=== PATIENT | female | born 1975 | race Caucasian/White ===

== ENCOUNTER → 2023-12-01 | Outpatient (CLI) | payer OTHER ==
--- NOTE | 2023-12-01 07:50 | CTL ---
EXAMINATION TYPE: CT Low Dose Lung DATE OF EXAM ORDERED: 12/01/2023 COMPARISON: None HISTORY: . Low Dose CT Lung Screening CT DLP: [address] CTDI: 1.8 mGy IV CONTRAST USED: None. SCREENING VISIT: First visit COMPARISON: None. TECHNIQUE: Low dose computed tomography scan was performed through the chest at 1 millimeter thick se ctions and reconstructed images in the coronal plane at [address] DIAGNOSTIC QUALITY: Satisfactory FINDINGS: LUNG NODULES: Not presentLeft lung: no nodules identified.Right lung: no nodules identified. LUNGS: COPD: Severity: None Fibrosis: Severity:None Lymph nodes: None Other findings: None RIGHT PLEURAL SPACE: Effusion: None Calcification: None Thickening: None Pneumothorax: None LEFT PLEURAL SPACE: Effusion: None Calcification: None Thickening: None Pneumothorax: None HEART: Heart Size: Mildly enlarged Coronary calcification: Mild Pericardial effusion: None OTHER FINDINGS: Upper abdomen: Hepatomegaly with underlying hepatic steatosis. Bony thorax: Degenerative changes Supraclavicular region: No significant abnormalityOther: No significant abnormalityI IMPRESSION: No pulmonary nodularity greater than [address]LLOW UP [address] CHEST RECOMMENDATION: Follow-up screening in one year CT LUNG RAD: LUNG RAD CATEGORY 1 negative
== END | disposition home or self-care (01) ==
LOC: RADCTMAIN 06:36
PROVIDERS: ATTEND Family Medicine
DX: Z12.2 Encounter for screening for malignant neoplasm of respiratory organs (principal); F17.210 Nicotine dependence, cigarettes, uncomplicated
CPT/HCPCS: 71271

== ENCOUNTER 2024-02-12 11:00 | Day surgery (SDC) | payer OTHER ==
[~2024-02-12 11:00] MED LIST: LACTATED RINGERS 1,000 ML BAG ONE
[2024-02-12] MEDS ORDERED: PROPOFOL 10 MG/ML 20 ML VIAL IV ONE (11:09)
--- NOTE | 2024-03-10 15:40 | US ---
EXAMINATION TYPE: US abdomen limited DATE OF EXAM: 02/12/2024 COMPARISON: NONE CLINICAL INDICATION: Ascites check, free air in abdomen Real-time sector scanning sonography is performed over the 4 quadrants. Fluid is identified within th e right upper and right lower quadrant. Some minimal fluid is in the left upper quadrant. IMPRESSION: 1. Small amount of free fluid within the abdomen.
--- NOTE | 2024-03-12 10:36 | XR ---
Patient Suzi Dan ID [id number] Order # EXAMINATION TYPE: XR chest 2V DATE OF EXAM: 02/08/2024 COMPARISON: No comparison available on downtime PACS. INDICATION: Abdominal distention, pain TECHNIQUE: Frontal and lateral views of the chest are obtained. FINDINGS: The heart size is upper limits of normal. The pulmonary vasculature is normal. The lungs are clear. IMPRESSION: 1. No acute pulmonary process.
--- NOTE | 2024-03-18 14:46 | PN ---
Date of service is 02/13/2024 PROGRESS NOTE LOCATION: [facility]. REASON FOR FOLLOWUP: Leukocytosis. INTERVAL HISTORY: The patient is afebrile. The patient is breathing comfortably. The patient denies having any chest pain, shortness of breath, or cough. No nausea, no vomiting. Abdominal pain has improved. No diarrhea. PHYSICAL EXAMINATION: VITAL SIGNS: Her blood pressure is 114/79, pulse of 107, temperature of 98.6, 97% on room air. GENERAL DESCRIPTION: This is a middle-aged female, up in the room, in no distress. RESPIRATORY SYSTEM: Unlabored breathing. Clear to auscultation anteriorly. HEART: S1 and S2. Regular rate. ABDOMEN: Soft. Mildly distended. No rebound or rigidity. LABORATORY DATA: White count is down to 15.97, creatinine 0.74. Ultrasound of abdomen shows small amount of fluid. DIAGNOSTIC IMPRESSION AND PLAN: The patient with leukocytosis source likely multifactorial, in this patient with the hospital with rectal prolapse, status post reduction colonoscopy and EGD. Ultrasound abdomen did not show significant amount of flow to paracentesis in view of white count improvement with Rocephin and Flagyl. Consider a 10-day course of oral Ceftin and Flagyl on discharge. This was discussed with the [employer] for admitting team. MMODL / IJN: [id number] / DOMI
--- NOTE | 2024-03-19 11:22 | PN ---
Date of service is 02/11/2024 PROGRESS NOTE LOCATION: 430. REASON FOR FOLLOWUP: Leukocytosis. INTERVAL HISTORY: The patient is afebrile. The patient denies having any headache or URI symptoms. No chest pain, shortness of breath, or cough. She is recovering from abdominal discomfort, currently drinking prep for colonoscopy. PHYSICAL EXAMINATION: VITAL SIGNS: Blood pressure 107/70 with a pulse of 107, temperature 98.1. GENERAL DESCRIPTION: This is a middle-aged female, up in the bed in no distress. RESPIRATORY SYSTEM: Unlabored breathing. Clear to auscultation anteriorly. HEART: S1 and S2. Regular rate and rhythm. ABDOMEN: Soft, mildly distended. No guarding or rigidity. LABORATORY DATA: Creatinine 0.7, white count reviewed DIAGNOSTIC IMPRESSION AND PLAN: The patient with leukocytosis, most likely abdominal pain. This patient presented to hospital with rectal prolapse, status post reduction. The patient is currently waiting for colonoscopy. She is covered with Rocephin and Flagyl. White count and cultures, we will monitor. Continue supportive care. MMODL / IJN: [id number] / MTDD
--- NOTE | 2024-03-19 11:25 | PCN ---
PROCEDURE NOTE PROCEDURE PERFORMED: EGD with colonoscopy. PREOPERATIVE DIAGNOSIS: Rectal prolapse and abdominal pain. POSTOPERATIVE DIAGNOSIS: Rectal prolapse and gastritis. SURGEON: Dr. Nicholas. ANESTHESIA: MAC. DESCRIPTION OF PROCEDURE: The patient was placed on the endoscopy table in the lateral position. She received IV sedation. The gastroscope was placed in the oropharynx, passed in the esophagus and the stomach. The scope was then placed through the pylorus. The first and second portion of duodenum appeared normal. Scope was then brought back to the antrum, this appeared mildly inflamed. Biopsies were performed. The scope was then retroflexed and the remainder of the stomach appeared normal. The GE junction was at 40 cm. Distal esophagus appeared normal. The proximal esophagus appeared normal. The scope was withdrawn from the patient. Next, digital rectal exam was performed. There was evidence of rectal prolapse. The anus was quite patulous. Flexible colonoscope was then placed in the patient's anus and passed throughout the entire colon. The ileocecal valve was visualized. The cecum, ascending, and transverse colon appeared normal. The descending and sigmoid colon appeared normal. Scope was brought back to the rectum and this appeared normal. Scope was withdrawn from the patient. SUMMARY OF FINDINGS: 1. Rectal prolapse. 2. Antral gastritis. MMODL / IJN: [id number] /
--- NOTE | 2024-03-19 11:25 | PN ---
PROGRESS NOTE DATE OF SERVICE: 02/13/2024 SUBJECTIVE: Mrs. Dan remains stable. She has had some rectal prolapse overnight. OBJECTIVE: VITAL SIGNS: Stable. ABDOMEN: Soft. Nontender. The patient underwent EGD and colonoscopy yesterday. She has had some mild antral gastritis and rectal prolapse. The patient is stable for discharge. She will follow up in the office next week. MMODL / IJN: [id number] /
--- NOTE | 2024-03-19 11:31 | CONS ---
Date of service is 02/10/2024 CONSULTATION REASON FOR CONSULTATION: Leukocytosis. HISTORY OF PRESENT ILLNESS: The patient is a 48-year-old female with a past medical history significant for hypertension, presenting to the hospital for evaluation of rectal pain and prolapse in this patient. Symptom apparently has been getting worse for the last 3 weeks. The patient denies having any diarrhea or constipation. She did have some discomfort to the rectum area because of the prolapse, describing it to be mostly dull, aching, mild to moderate intensity without any radiation. Denies any constipation or diarrhea. No nausea, vomiting, or any high-grade fever. The patient has been evaluated and noticed to have elevated white count of 21,000, that has prompted the infectious disease consultation. She was empirically started on Rocephin. REVIEW OF SYSTEMS: Positive points have been mentioned in HPI. Rest of the systems negative. PAST MEDICAL HISTORY: Hypertension. PAST SURGICAL HISTORY: . SOCIAL HISTORY: History of smoking and drinking. No drug use. FAMILY HISTORY: No pertinent findings were noticed. ALLERGIES: No known drug allergies. MEDICATIONS: Currently, the patient is on: 1. Multivitamin. 2. Folic acid. 3. Thiamine. 4. Rocephin 1 g daily. 5. She is on normal saline, Protonix, [place], and Zofran. PHYSICAL EXAMINATION: VITAL SIGNS: Stable. T-max is 98 F GENERAL DESCRIPTION: This is a middle-aged female, lying in bed, in no distress. No tachypnea. No accessory muscle of respiration use. HEENT: Shows pallor. No scleral icterus. Oral mucous membranes dry. NECK: Trachea central. No thyromegaly. LUNGS: Unlabored breathing. Clear to auscultation. No wheeze or crackle. HEART: S1, S2. Regular rate and rhythm. ABDOMEN: Soft. No tenderness. No guarding. No rigidity. EXTREMITIES: No edema in the feet. SKIN: No rash or mass palpable. NEUROLOGIC: The patient is awake, alert, and oriented x3. Mood and affect normal. LABORATORY DATA: White count of 20,000 initially, down to 16; hemoglobin 7.4. AST is 203, ALT is 48. She did have a CT of abdomen and pelvis with enlarged liver, fatty liver, moderate fluid in the pelvis, and diverticulitis. DIAGNOSTIC IMPRESSION/PLAN: 1. The patient with leukocytosis, which is likely of GI source in this patient, who presented to the hospital with rectal pain and prolapse that has been reduced. Also, she has some anemia, abnormal CT with free fluid in the pelvis, and we will need to cover for the enteric gram-negative both aerobes and anaerobes. 2. The patient to continue Rocephin. We will add Flagyl for anaerobic coverage. 3. The patient did have positive blood culture with staph epi, more likely skin contamination. Unfortunately, we cannot repeat the blood culture as no blood culture bottle is available in the hospital. 4. We will follow on clinical condition and culture to further adjust medication if needed. Thank you for this consultation. We will follow this patient along with you. MMODL / IJN: [id number] / DOMI
--- NOTE | 2024-03-19 11:55 | PN ---
PROGRESS NOTE DATE OF SERVICE: 02/12/2024 LOCATION: 450. REASON FOR FOLLOWUP: Leukocytosis. INTERVAL HISTORY: The patient is afebrile. The patient is breathing comfortably. The patient is status post EGD and colonoscopy with evidence of gastritis. No active source of bleeding. Denies any chest pain, shortness of breath, or cough. No abdominal pain. Feeling better. Wants to go home. PHYSICAL EXAMINATION: VITAL SIGNS: Blood pressure 137/77, pulse of 108, temperature 98.4. She is 95% on room air. GENERAL DESCRIPTION: This is a middle-aged female, up in the room, in no distress. RESPIRATORY SYSTEM: Unlabored breathing. Clear to auscultation anteriorly. HEART: S1, S2. Regular rate and rhythm. ABDOMEN: Soft, mildly distended. No guarding or rigidity. LABORATORY DATA: White count is up to 19,000. DIAGNOSTIC IMPRESSION AND PLAN: The patient with leukocytosis, multifactorial, concerning for possible abdominal source, presenting with abdominal pain and leukocytosis. Abdominal ultrasound has been ordered keeping in mind elevated white count. Continue Rocephin and Flagyl and we will watch. Follow up on the culture. Repeat CBC with a.m. labs. MMODL / IJN: [id number] /
== END 2024-02-12 12:30 ==
LOC: ORWHC2ENDO 11:00
PROVIDERS: ATTEND Surgery
DX: K31.9 Disease of stomach and duodenum, unspecified
CPT/HCPCS: 43239; 45378; 76705; 87040; 88305

== ENCOUNTER → 2024-02-16 | Outpatient (CLI) | payer OTHER ==
--- NOTE | 2024-02-16 17:27 | US ---
EXAMINATION TYPE: US venous doppler duplex LE RT DATE OF EXAM: 02/16/2024 5:16 PM COMPARISON: NONE CLINICAL INDICATION: Female, 48 years old with history of R22.41 SWELLING OF RIGHT LOWER LIMB; Patien t states right leg swelling. No hx of DVT. Patient not on thinners. SIDE PERFORMED: Right TECHNIQUE: The lower extremity deep venous system is examined utilizing real time linear array sonog mayra with graded compression, doppler sonography and color-flow sonography. VESSELS IMAGED: Common Femoral Vein Deep Femoral Vein Greater Saphenous Vein * Femoral Vein Popliteal Vein Small Saphenous Vein * Proximal Calf Veins (* superficial vessels) Right Leg: appears negative for DVT IMPRESSION: Grayscale, color doppler, spectral doppler imaging performed of the deep veins of the lo wer extremities. There is normal flow, compressibility, vascular waveforms.
== END | disposition home or self-care (01) ==
LOC: RADUSWWP 16:52
PROVIDERS: ATTEND Family Medicine
DX: R22.41 Localized swelling, mass and lump, right lower limb (principal)

== ENCOUNTER 2024-02-18 14:12 | Emergency (ER) | payer OTHER ==
--- NOTE | 2024-02-18 16:03 | ED ---
Recheck HPI - General Source: patient, RN notes reviewed Mode of arrival: wheelchair Limitations: no limitations <Cboy Rosales - Last Filed: 02/18/24 16:02> <Louis Mata - Last Filed: 02/18/24 21:34> - General Chief Complaint: Recheck/Abnormal Lab/Rx Stated Complaint: abn labs Time Seen by Provider: 02/18/24 16:02 - History of Present Illness Initial Comments: Quick note: 48-year-old female presented to the ER with a chief complaint of abnormal labs. Patient slipped with PCP found to have leukocytosis. Patient reports recent peripheral edema and abdominal distention. Patient was scheduled for paracentesis. Denies any fevers or chills. Patient was started on a diuretic but has had low urinary output. Patient recently released from this hospital after a 5 days admission for similar complaint. (Coby Rosales) - Related Data Home Medications Medication Instructions Recorded Confirmed Losartan [Cozaar] 25 mg PO DAILY 02/18/24 02/18/24 Triamcinolone 0.5% Cream [Kenalog 1 applic TOPICAL BID 02/18/24 02/18/24 0.5% Cream] cefUROXime axetiL [Ceftin] 500 mg PO BID 02/18/24 02/18/24 metroNIDAZOLE [Flagyl] 500 mg PO TID 02/18/24 02/18/24 Allergies Allergy/AdvReac Type Severity Reaction Status Date / Time lavender (Lavandula Allergy Itching Verified 02/18/24 19:27 angustifolia) Review of Systems ROS Other: All systems not noted in ROS Statement are negative. <Coby Rosales - Last Filed: 02/18/24 16:02> ROS Other: All systems not noted in ROS Statement are negative. <Louis Mata - Last Filed: 02/18/24 21:34> ROS Statement: Those systems with pertinent positive or pertinent negative responses have been documented in the HPI. Past Medical History Past Medical History: Hypertension Additional Past Medical History / Comment(s): prolapsed rectum History of Any Multi-Drug Resistant Organisms: None Reported Past Surgical History: Section Past Psychological History: No Psychological Hx Reported Smoking Status: Current every day smoker Past Alcohol Use History: Heavy Past Drug Use History: Marijuana <Coby Rosales - Last Filed: 02/18/24 16:02> General Exam Limitations: no limitations <Coby Rosales - Last Filed: 02/18/24 16:02> General appearance: alert, in no apparent distress Head exam: Present: atraumatic, normocephalic Eye exam: Present: normal appearance, PERRL ENT exam: Present: normal exam Neck exam: Present: normal inspection. Absent: tenderness, meningismus Respiratory exam: Present: normal lung sounds bilaterally, decreased breath sounds. Absent: respiratory distress, wheezes Cardiovascular Exam: Present: regular rate, normal rhythm GI/Abdominal exam: Present: distended, other (Positive fluid wave). Absent: tenderness Extremities exam: Present: pedal edema Neurological exam: Present: alert, oriented X3 Psychiatric exam: Present: normal affect, normal mood Skin exam: Present: pallor <Louis Mata - Last Filed: 02/18/24 21:34> - General Exam Comments Initial Comments: Visual Physical Exam Vital signs reviewed General: Well-appearing, nontoxic, no acute distress. Head: Normocephalic, atraumatic Eyes: PERRLA, EOMI ENT: Airway patent Chest: Nonlabored breathing Skin: No visual rash, normal skin tone, bilateral lower extremity edema. D istended abdomen. Neuro: Alert and oriented 3 Musculoskeletal: No gross abnormalities (Coby Rosales) Course <Louis Mata - Last Filed: 02/18/24 21:34> Vital Signs 02/18/24 02/18/24 14:28 18:25 Temperature 98.0 F 97.9 F Pulse Rate 117 H 102 H Respiratory 18 16 Rate Blood Pressure 81/56 99/48 O2 Sat by Pulse 100 96 Oximetry - Reevaluation(s) Reevaluation #1: 02/18/24 17:35 Reevaluated, resting comfortably, no pain complaints (Louis Mata) Medical Decision Making <Coby Rosales - Last Filed: 02/18/24 16:02> - Lab Data Result diagrams: 02/18/24 18:23 02/18/24 19:50 <Louis Mata - Last Filed: 02/18/24 21:34> - Medical Decision Making I performed the quick note portion of this chart. Electronically signed by Coby Rosales PA-C (Coby Rosales) Was pt. sent in by a medical professional or institution (KERVIN Wade, [employer]ER, urgent care, hospital, or [facility]...) When possible be specific @ -No Did you speak to anyone other than the patient for history (EMS, parent, family, police, friend...)? What history was obtained from this source @ -No Did you review nursing and triage notes (agree or disagree)? Why? @ -I reviewed and agree with nursing and triage notes Were old charts reviewed (outside hosp., previous admission, EMS record, old EKG, old radiological studies, urgent care reports/EKG's, [facility] records)? Report findings @ -No old charts were reviewed Differential Abdominal Pain Women: Appendicitis, Cholecystitis, diverticulosis, ischemic bowel, pancreatitis, hepatitis, UTI, gastroenteritis, AAA, incarcerated hernia, bowel obstruction, constipation, inflammatory bowel, hepatitis, peptic ulcer disease, splenic infarction, perforated viscus, vulvitis, ovarian torsion, PID, kidney stone, placenta abruption, this is not meant to be an all-inclusive list EKG interpreted by me (3pts min.). @ -Sinus rhythm rate of 96, AR interval 99, QRS duration 86, QTc [address] segment elevation. X-rays interpreted by me (1pt min.). @Chest x-ray has concern for infiltrate CT interpreted by me (1pt min.). @ -CT pelvis showing ascites U/S interpreted by me (1pt. min.). @ -None done What testing was considered but not performed or refused? (CT, X-rays, U/S, labs)? Why? @ -None What meds were considered but not given or refused? Why? @ -None Did you discuss the management of the patient with other professionals (p rofessionals i.e. KERVIN Wade, [employer]ER, lab, RT, psych nurse, director of social services, real estate lawyer, teacher, helicopter officer, case finishing machine adjuster)? Give summary @Case discussed with Dr. Holt who will admit Was smoking cessation discussed for >3mins.? @ -No Was critical care preformed (if so, how long)? @ -No Were there social determinants of health that impacted care today? How? (Homelessness, low income, unemployed, alcoholism, drug addiction, transportation, low edu. Level, literacy, decrease access to med. care, [facility], r ehab)? @ -No Was there de-escalation of care discussed even if they declined (Discuss DNR or withdrawal of care, Hospice)? DNR status @ -No What co-morbidities impacted this encounter? (DM, HTN, Smoking, COPD, CAD, Cancer, CVA, ARF, Chemo, Hep., AIDS, mental health diagnosis, sleep apnea, morbid obesity)? @ - Was patient admitted / discharged? Hospital course, mention meds given and route, prescriptions, significant lab abnormalities, going to OR and other pertinent info. @ -Patient admitted with leukocytosis, questionable pneumonia and ascites. Admitted to internal medicine with interventional radiology as well as general surgery on consult for rectal prolapse which she states she was awaiting surgical evaluation for Undiagnosed new problem with uncertain prognosis? @ -No Drug Therapy requiring intensive monitoring for toxicity (Heparin, Nitro, Insulin, Cardizem)? @ -No Were any procedures done? @ -No Diagnosis/symptom? @yes, pneumonia, leukocytosis Acute, or Chronic, or Acute on Chronic? @ -Acute on chronic Uncomplicated (without systemic symptoms) or Complicated (systemic symptoms)? @ -Default Side effects of treatment? @ -No Exacerbation, Progression, or Severe Exacerbation? @ -No Poses a threat to life or bodily function? How? (Chest pain, USA, VT, pneumonia, PE, COPD, DKA, ARF, appy, cholecystitis, CVA, Diverticulitis, Homicidal, Suicidal, threat to staff... and all critical care pts) @ -[yes, sepsis (Louis Mata) - Lab Data Lab Results 02/18/24 02/18/24 02/18/24 Range/Units 18:23 18:23 18:23 WBC 20.5 H (3.8-10.6) k/uL RBC 2.17 L (3.80-5.40) m/uL Hgb 8.6 L (11.4-16.0) gm/dL Hct 28.5 L (34.0-46.0) % MCV 131.0 H (80.0-100.0) fL MCH 39.7 H (25.0-35.0) pg MCHC 30.3 L (31.0-37.0) g/dL RDW 15.8 H (11.5-15.5) % Plt Count 751 H (150-450) k/uL MPV 8.7 Neutrophils % 88 % Lymphocytes % 8 % Monocytes % 3 % Eosinophils % 1 % Basophils % 0 % Neutrophils # 18.0 H (1.3-7.7) k/uL Lymphocytes # 1.7 (1.0-4.8) k/uL Monocytes # 0.5 (0-1.0) k/uL Eosinophils # 0.1 (0-0.7) k/uL Basophils # 0.0 (0-0.2) k/uL Manual Slide Review Performed Large Platelets Present Polychromasia Present Hypochromasia Moderate Macrocytosis Marked A Target Cells Present Stomatocytes Present PT 14.1 H (10.0-12.5) sec INR 1.3 H (<1.2) APTT 26.7 (22.0-30.0) sec Sodium (137-145) mmol/L Potassium (3.5-5.1) mmol/L Chloride (98-107) mmol/L Carbon Dioxide (22-30) mmol/L Anion Gap mmol/L BUN (7-17) mg/dL Creatinine (0.52-1.04) mg/dL Est GFR (CKD-EPI)AfAm (>60 ml/min/1.73 sqM) Est GFR (CKD-EPI)NonAf (>60 ml/min/1.73 sqM) Glucose (74-99) mg/dL Plasma Lactic Acid Himanshu 1.0 (0.7-2.0) mmol/L Calcium (8.4-10.2) mg/dL Total Bilirubin (0.2-1.3) mg/dL AST (14-36) U/L ALT (4-34) U/L Alkaline Phosphatase (38-126) U/L NT-Pro-B Natriuret Pep pg/mL Total Protein (6.3-8.2) g/dL Albumin (3.5-5.0) g/dL 02/18/24 Range/Units 19:50 WBC (3.8-10.6) k/uL RBC (3.80-5.40) m/uL Hgb (11.4-16.0) gm/dL Hct (34.0-46.0) % MCV (80.0-100.0) fL MCH (25.0-35.0) pg MCHC (31.0-37.0) g/dL RDW (11.5-15.5) % Plt Count (150-450) k/uL MPV Neutrophils % % Lymphocytes % % Monocytes % % Eosinophils % % Basophils % % Neutrophils # (1.3-7.7) k/uL Lymphocytes # (1.0-4.8) k/uL Monocytes # (0-1.0) k/uL Eosinophils # (0-0.7) k/uL Basophils # (0-0.2) k/uL Manual Slide Review Large Platelets Polychromasia Hypochromasia Macrocytosis Target Cells Stomatocytes PT (10.0-12.5) sec INR (<1.2) APTT (22.0-30.0) sec Sodium 139 (137-145) mmol/L Potassium 2.8 L (3.5-5.1) mmol/L Chloride 114 H (98-107) mmol/L Carbon Dioxide 17 L (22-30) mmol/L Anion Gap 8 mmol/L BUN 9 (7-17) mg/dL Creatinine 0.91 (0.52-1.04) mg/dL Est GFR (CKD-EPI)AfAm 85 (>60 ml/min/1.73 sqM) Est GFR (CKD-EPI)NonAf 74 (>60 ml/min/1.73 sqM) Glucose 99 (74-99) mg/dL Plasma Lactic Acid Himanshu (0.7-2.0) mmol/L Calcium 8.6 (8.4-10.2) mg/dL Total Bilirubin 2.2 H (0.2-1.3) mg/dL AST 111 H (14-36) U/L ALT 28 (4-34) U/L Alkaline Phosphatase 570 H (38-126) U/L NT-Pro-B Natriuret Pep 929 pg/mL Total Protein 5.3 L (6.3-8.2) g/dL Albumin 2.3 L (3.5-5.0) g/dL Disposition <Coby Rosales - Last Filed: 02/18/24 16:02> Is patient prescribed a controlled substance at d/c from ED?: No Time of Disposition: 21:34 <Louis Mata - Last Filed: 02/18/24 21:34> Clinical Impression: Ascites, Leukocytosis Disposition: ADMITTED IP TO THIS [facility] Condition: Stable Referrals: Tegan Low MD [Primary Care Provider] - 1-2 days
--- NOTE | 2024-02-18 17:50 | XR ---
EXAMINATION TYPE: XR chest 2V DATE OF EXAM: 02/18/2024 COMPARISON: None INDICATION: Peripheral edema, elevated white count TECHNIQUE: Single frontal view of the chest is obtained. FINDINGS: The heart size is normal. The pulmonary vasculature is normal. Mild atelectatic type changes are at the right lung base. Consider pneumonia. Some minimal subsegment al atelectasis is likely present in the left lung base. IMPRESSION: 1. Right lower lobe infiltrate likely atelectasis. Pneumonia could be considered. 2. Minimal subsegmental atelectasis may be at the left base.
--- NOTE | 2024-02-18 17:53 | CT ---
EXAMINATION TYPE: CT abdomen pelvis wo con DATE OF EXAM: 02/18/2024 COMPARISON: None INDICATION: abdominal distention and abnormal labs sent by PCP DLP: 479.8 mGycm, Automated exposure control for dose reduction was used. CONTRAST: 0 mL of Isovue 300. Study performed without Oral Contrast TECHNIQUE: Axial images were obtained from above the diaphragm to the pubic rami in the axial plane a t 5 mm thick sections. Reconstructed images are reviewed on the computer in the coronal plane. FINDINGS: Limited CT sections are obtained the lung bases. Some minimal infiltrates in the periphery of the li ngula and left lung base. Mild bibasilar atelectasis is likely present. Small left pleural effusion i s present.. CT ABDOMEN: Some mild fluid is adjacent to the liver and spleen. Fluid continues through the paracoli c gutter. Some moderate fluid is within the pelvis. Liver: Hepatomegaly is present. Spleen: Normal Pancreas: Normal Adrenal glands: The adrenal glands are normal. Gallbladder: Normal Kidneys: No masses are evident. No hydronephrosis is present. No cysts are present. No renal stone s are evident. Aorta: Normal Inferior vena cava: Normal. CT PELVIS: Loops of bowel within the abdomen and pelvis are normal. Few scattered diverticuli within the sigmoid colon This study is without oral contrast limiting bowel evaluation. Appendix: Normal as visualized. Urinary bladder: Normal. Genitourinary structures: Uterus appears unremarkable. Adnexa are normal. Osseous structures: No suspicious lytic or sclerotic lesions. IMPRESSION: 1. Moderate free fluid through the abdomen and pelvis. 2. Hepatomegaly. 3. Mild diverticulosis without acute diverticulitis.
[2024-02-18 19:03] LABS: Basophils % (A) 0 %; Eosinophils # (A) 0.1 k/uL (0-0.7); Eosinophils % (A) 1 %; HCT 28.5 % (34.0-46.0); HGB 8.6 gm/dL (11.4-16.0); Hypochromasia Moderate; Lymphocytes # (A) 1.7 k/uL (1.0-4.8); Lymphocytes % (A) 8 %; MCH 39.7 pg (25.0-35.0); MCHC 30.3 g/dL (31.0-37.0); Macrocytosis Marked; Mean Platelet Volume 8.7; Monocytes # (A) 0.5 k/uL (0-1.0); Monocytes % (A) 3 %; Neutrophils % (A) 88 %; Platelet Count 751 k/uL (150-450); RBC 2.17 m/uL (3.80-5.40); RDW 15.8 % (11.5-15.5); WBC 20.5 k/uL (3.8-10.6)
[2024-02-18 19:26] LABS: Large Platelets Present; Polychromasia Present; Stomatocytes Present; Target Cells Present
[2024-02-18 19:38] LABS: INR 1.3 (<1.2); Partial Thromboplastin Time 26.7 sec (22.0-30.0); Prothrombin Time 14.1 sec (10.0-12.5)
[2024-02-18 20:14] LABS: ALT 28 U/L (4-34); AST 111 U/L (14-36); African American GFR (CKD) 85 (>60 ml/min/1.73 sqM); Albumin 2.3 g/dL (3.5-5.0); Alkaline Phosphatase 570 U/L (38-126); Anion Gap 8 mmol/L; Blood Urea Nitrogen 9 mg/dL (7-17); Calcium 8.6 mg/dL (8.4-10.2); Carbon Dioxide 17 mmol/L (22-30); Chloride 114 mmol/L (98-107); Glucose 99 mg/dL (74-99); Non-African American GFR(CKD) 74 (>60 ml/min/1.73 sqM); Potassium 2.8 mmol/L (3.5-5.1); Sodium 139 mmol/L (137-145); Total Bilirubin 2.2 mg/dL (0.2-1.3); Total Protein 5.3 g/dL (6.3-8.2)
[2024-02-18 20:22] LABS: NT-Pro-B-Type Natriuretic Pept 929 pg/mL
[2024-02-18] MEDS ORDERED: NALOXONE 0.4 MG/ML 1 ML VIAL IV PRN (21:30)
[2024-02-18] MEDS ORDERED: HYDROmorphone 0.5 MG/0.5 ML SYRINGE IVP PRN (21:30)
[2024-02-18 21:41] LABS: Appearance,Urine Clear (Clear); Bilirubin,Urine 1+ (Negative); Blood,Urine Negative (Negative); Color,Urine Dark Brown; Glucose,Urine (UA) Negative (Negative); Hyaline Casts,Urine 56 /lpf (0-2); Ketones,Urine Trace (Negative); Leukocyte Esterase,Urine Trace (Negative); Nitrite,Urine Negative (Negative); Protein,Urine 1+ (Negative); RBC,Urine 1 /hpf (0-5); Specific Gravity,Urine 1.031 (1.001-1.035); Squamous Epithelial Cell,Urine 1 /hpf (0-4); Urobilinogen,Urine <2.0 mg/dL (<2.0); WBC,Urine 1 /hpf (0-5)
[2024-02-19] MEDS: HYDROmorphone 0.5 MG/0.5 ML SYRINGE IVP STA (04:21)
[2024-02-19] MEDS: POTASSIUM CHLORIDE 10 MEQ in WATER FOR INJECTION 1 100ML.BAG IVPB SCH (04:22)
[2024-02-19 05:01] VITALS: BP 91/63; PULSE 97; RESP 18; TEMP 98.3
--- NOTE | 2024-03-01 17:21 | CT ---
Patient Suzi Dan ID [id number] Order # EXAMINATION TYPE: CT abdomen pelvis w con DATE OF EXAM: 02/08/2024 COMPARISON: No comparison available on downtime PACS. INDICATION: Abdominal pain and distention x3 weeks DLP: 677.3 mGycm, Automated exposure control for dose reduction was used. CONTRAST: 100 mL of Isovue 300. Study performed without Oral Contrast TECHNIQUE: Axial images were obtained from above the diaphragm to the pubic rami in the axial plane a t 5 mm thick sections. Reconstructed images are reviewed on the computer in the coronal plane. FINDINGS: Limited CT sections are obtained the lung bases. The lung bases are clear. CT ABDOMEN: Liver: Liver is heterogenous and enlarged, measuring 24.5 cm in craniocaudal dimension. Discrete mass es are not evident. More homogenous appearance with moderate fatty infiltration on the delayed images . An infiltrative process however should be considered. Additional workup is recommended. Spleen: Normal Pancreas: Normal Adrenal glands: The adrenal glands are normal. Gallbladder: Decompressed but otherwise unremarkable. Kidneys: No masses are evident. No hydronephrosis is present. No cysts are present. Delayed images were obtained through the kidneys, which remain unremarkable. Aorta: Normal Inferior vena cava: Normal. CT PELVIS: Moderate free fluid is within the pelvis. Loops of bowel within the abdomen and pelvis are normal. There are few scattered diverticuli within the sigmoid colon without evidence of acute diverticulitis. This study is without oral contrast parks iting bowel evaluation. Appendix: Normal as visualized. Urinary bladder: Decompressed with limited evaluation. Genitourinary structures: Uterus appears normal. Adnexa are unremarkable Osseous structures: No suspicious lytic or sclerotic lesions. Left femoral medullary suzy is present. IMPRESSION: 1. Markedly enlarged heterogenous appearing liver. Findings could be related to fatty liver. Infiltr ative process should be considered. 2. Moderate free fluid within the pelvis of uncertain etiology. 3. Diverticulosis without acute diverticulitis.
== END 2024-02-19 05:40 | disposition other institution (70) ==
LOC: EC 14:12 → 5NMEDONC 21:30 → UNDOADMIN 21:30 → UNDODISIN 02-19 05:58
CPT/HCPCS: 36415; 71046; 74176; 80053; 81001; 83605; 83880; 85025; 85610; 85730; 87040; 93005; 96365; 99285

== ENCOUNTER 2024-03-03 13:26 | Inpatient (IN) | payer OTHER ==
--- NOTE | 2024-03-03 15:34 | ED ---
General Adult HPI - General Chief complaint: Shortness of Breath Stated complaint: TOMMIE Time Seen by Provider: 03/03/24 15:00 Source: patient, RN notes reviewed, old records reviewed Mode of arrival: ambulatory Limitations: no limitations - History of Present Illness Initial comments: This is a 48-year-old female who has a past medical history significant for liver failure. Patient has significant ascites and has had it drained once before. Patient states her abdomen is getting so large that it is making it difficult to get full breaths and she feels short of breath. Patient Nuys any chest pain or palpitations. Patient denies any fever chills or cough. Patient does states she has a little bit of back pain but not bad. Patient denies any abdominal pain patient has nausea vomiting diarrhea. Patient states her abdomen is very distended and she comes in so that she can get her abdomen drained - Related Data Home Medications Medication Instructions Recorded Confirmed Triamcinolone 0.5% Cream [Kenalog 1 applic TOPICAL BID 02/18/24 03/03/24 0.5% Cream] Furosemide [Lasix] 20 mg PO DAILY 03/03/24 03/03/24 Midodrine [ProAmatine] 10 mg PO TID 03/03/24 03/03/24 Sodium Bicarbonate Tab 650 mg PO QID 03/03/24 03/03/24 Spironolactone [Aldactone] 25 mg PO BID 03/03/24 03/03/24 Allergies Allergy/AdvReac Type Severity Reaction Status Date / Time lavender (Lavandula Allergy Itching Verified 03/03/24 16:21 angustifolia) Review of Systems ROS Statement: Those systems with pertinent positive or pertinent negative responses have been documented in the HPI. ROS Other: All systems not noted in ROS Statement are negative. Past Medical History Past Medical History: Hypertension Additional Past Medical History / Comment(s): prolapsed rectum History of Any Multi-Drug Resistant Organisms: None Reported Past Surgical History: Section Past Psychological History: No Psychological Hx Reported Smoking Status: Current every day smoker Past Alcohol Use History: Heavy Past Drug Use History: Marijuana General Exam - General Exam Comments Initial Comments: GENERAL: Patient is well-developed and well-nourished. Patient is nontoxic and well- hydrated and is in mild distress. ENT: Neck is soft and supple. No significant lymphadenopathy is noted. Oropharynx is clear. Moist mucous membranes. Neck has full range of motion without eliciting any pain. EYES: The sclera were anicteric and conjunctiva were pink and moist. Extraocular movements were intact and pupils were equal round and reactive to light. Eyelids were unremarkable. PULMONARY: Unlabored respirations. Good breath sounds bilaterally. No audible rales rhonchi or wheezing was noted. CARDIOVASCULAR: There is a regular rate and rhythm without any murmurs gallops or rubs. Femoral pulses are equal bilaterally ABDOMEN: Abdomen is grossly distended and taut. SKIN: Skin is clear with no lesions or rashes and otherwise unremarkable. NEUROLOGIC: Patient is alert and oriented x3. Cranial nerves II through XII are grossly int act. Motor and sensory are also intact. Normal speech, volume and content. Symmetrical smile. MUSCULOSKELETAL: Normal extremities with adequate strength and full range of motion. No lower extremity swelling or edema. No calf tenderness. LYMPHATICS: No significant lymphadenopathy is noted PSYCHIATRIC: Normal psychiatric evaluation. Limitations: no limitations Course Vital Signs 03/03/24 03/03/24 03/03/24 13:32 16:57 17:19 Temperature 98.0 F Pulse Rate 116 H 106 H 84 Respiratory 20 20 20 Rate Blood Pressure 92/66 87/59 104/71 O2 Sat by Pulse 94 L 96 96 Oximetry Medical Decision Making - Medical Decision Making EKG is interpreted by myself. EKG shows a sinus tachycardia at 112 bpm parables 99 QRS of 73 QT interval 321 QTc is 387. Patient's EKG shows no ST segment ovation or depression. Was pt. sent in by a medical professional or institution (, PA, SETTER HELPER, urgent care, hospital, or [facility]...) When possible be specific @ -No Did you speak to anyone other than the patient for history (EMS, parent, family, police, friend...)? What history was obtained from this source @ -No Did you review nursing and triage notes (agree or disagree)? Why? @ -I reviewed and agree with nursing and triage notes Were old charts reviewed (outside hosp., previous admission, EMS record, old EKG, old radiological studies, urgent care reports/EKG's, [facility] records)? Report findings @ -No old charts were reviewed Differential Diagnosis? @ -Differential Dyspnea: Coronary syndrome, arrhythmia, tamponade, asthma, COPD, pulmonary embolism, pneumonia, pneumothorax, pulmonary effusion, anaphylaxis, diabetic ketoacidosis, flailed chest, pulmonary contusion, diaphragmatic rupture, anemia, neuromuscular, this is not meant to be an all-inclusive list. EKG interpreted by me (3pts min.). @ -As above X-rays interpreted by me (1pt min.). @ -Chest x-ray shows some minimal pulmonary edema CT interpreted by me (1pt min.). @ -None done U/S interpreted by me (1pt. min.). @ -None done What testing was considered but not performed or refused? (CT, X-rays, U/S, labs)? Why? @ -None What meds were considered but not given or refused? Why? @ -None Did you discuss the management of the patient with other professionals (professionals i.e. , PA, SETTER HELPER, lab, RT, psych nurse, perinatal social worker, corporate officer, teacher, nuclear officer, continuous pillowcase cutter)? Give summary @ -I spoke with I spoke with Dr. Galvan and he agreed to admit the patient Was smoking cessation discussed for >3mins.? @ -No Was critical care preformed (if so, how long)? @ -No Were there social determinants of health that impacted care today? How? (Homelessness, low income, unemployed, alcoholism, drug addiction, transportation, low edu. Level, literacy, decrease access to med. care, alf, rehab)? @ -No Was there de-escalation of care discussed even if they declined (Discuss DNR or withdrawal of care, Hospice)? DNR status @ -No What co-morbidities impacted this encounter? (DM, HTN, Smoking, COPD, CAD, Cancer, CVA, ARF, Chemo, Hep., AIDS, mental health diagnosis, sleep apnea, morbid obesity)? @ -None Was patient admitted / discharged? Hospital course, mention meds given and route, prescriptions, significant lab abnormalities, going to OR and other pertinent info. @ -Patient has significant ascites which is limiting the patient's breathing. Patient will be under Dr. Galvan. Undiagnosed new problem with uncertain prognosis? @ -No Drug Therapy requiring intensive monitoring for toxicity (Heparin, Nitro, Insulin, Cardizem)? @ -No Were any procedures done? @ -No Diagnosis/symptom? @ -Ascites Acute, or Chronic, or Acute on Chronic? @ -Acute Uncomplicated (without systemic symptoms) or Complicated (systemic symptoms)? @ -Complicated Side effects of treatment? @ -No Exacerbation, Progression, or Severe Exacerbation? @ -No Poses a threat to life or bodily function? How? (Chest pain, [place], [place], pneumonia, PE, COPD, DKA, ARF, appy, cholecystitis, CVA, Diverticulitis, Homicidal, Suicidal, threat to staff... and all critical care pts) @ -No - Lab Data Result diagrams: 03/03/24 15:45 03/03/24 15:45 Lab Results 03/03/24 03/03/24 03/03/24 Range/Units 15:45 15:45 15:45 WBC 20.7 H (3.8-10.6) k/uL RBC 2.70 L (3.80-5.40) m/uL Hgb 9.9 L (11.4-16.0) gm/dL Hct 33.6 L (34.0-46.0) % MCV 124.4 H D (80.0-100.0) fL MCH 36.5 H (25.0-35.0) pg MCHC 29.4 L (31.0-37.0) g/dL RDW 13.7 (11.5-15.5) % Plt Count 410 (150-450) k/uL MPV 8.2 Neutrophils % 84 % Lymphocytes % 10 % Monocytes % 4 % Eosinophils % 2 % Basophils % 0 % Neutrophils # 17.3 H (1.3-7.7) k/uL Lymphocytes # 2.1 (1.0-4.8) k/uL Monocytes # 0.7 (0-1.0) k/uL Eosinophils # 0.3 (0-0.7) k/uL Basophils # 0.1 (0-0.2) k/uL Manual Slide Review Performed Hypochromasia Marked Macrocytosis Marked A PT 13.7 H (10.0-12.5) sec INR 1.3 H (<1.2) APTT 29.1 (22.0-30.0) sec Sodium 136 L (137-145) mmol/L Potassium 4.4 (3.5-5.1) mmol/L Chloride 104 (98-107) mmol/L Carbon Dioxide 27 (22-30) mmol/L Anion Gap 5 mmol/L BUN 14 (7-17) mg/dL Creatinine 1.06 H (0.52-1.04) mg/dL Est GFR (CKD-EPI)AfAm 71 (>60 ml/min/1.73 sqM) Est GFR (CKD-EPI)NonAf 62 (>60 ml/min/1.73 sqM) Glucose 101 H (74-99) mg/dL Plasma Lactic Acid Himanshu (0.7-2.0) mmol/L Calcium 8.5 (8.4-10.2) mg/dL Total Bilirubin 1.8 H (0.2-1.3) mg/dL AST 138 H (14-36) U/L ALT 18 (4-34) U/L Alkaline Phosphatase 881 H (38-126) U/L Troponin I (0.000-0.034) ng/mL NT-Pro-B Natriuret Pep pg/mL Total Protein 6.1 L (6.3-8.2) g/dL Albumin 2.6 L (3.5-5.0) g/dL 03/03/24 03/03/24 03/03/24 Range/Units 15:45 15:45 15:45 WBC (3.8-10.6) k/uL RBC (3.80-5.40) m/uL Hgb (11.4-16.0) gm/dL Hct (34.0-46.0) % MCV (80.0-100.0) fL MCH (25.0-35.0) pg MCHC (31.0-37.0) g/dL RDW (11.5-15.5) % Plt Count (150-450) k/uL MPV Neutrophils % % Lymphocytes % % Monocytes % % Eosinophils % % Basophils % % Neutrophils # (1.3-7.7) k/uL Lymphocytes # (1.0-4.8) k/uL Monocytes # (0-1.0) k/uL Eosinophils # (0-0.7) k/uL Basophils # (0-0.2) k/uL Manual Slide Review Hypochromasia Macrocytosis PT (10.0-12.5) sec INR (<1.2) APTT (22.0-30.0) sec Sodium (137-145) mmol/L Potassium (3.5-5.1) mmol/L Chloride (98-107) mmol/L Carbon Dioxide (22-30) mmol/L Anion Gap mmol/L BUN (7-17) mg/dL Creatinine (0.52-1.04) mg/dL Est GFR (CKD-EPI)AfAm (>60 ml/min/1.73 sqM) Est GFR (CKD-EPI)NonAf (>60 ml/min/1.73 sqM) Glucose (74-99) mg/dL Plasma Lactic Acid Himanshu 1.2 (0.7-2.0) mmol/L Calcium (8.4-10.2) mg/dL Total Bilirubin (0.2-1.3) mg/dL AST (14-36) U/L ALT (4-34) U/L Alkaline Phosphatase (38-126) U/L Troponin I <0.012 (0.000-0.034) ng/mL NT-Pro-B Natriuret Pep 1020 pg/mL Total Protein (6.3-8.2) g/dL Albumin (3.5-5.0) g/dL Disposition Clinical Impression: Ascites Disposition: ADMITTED IP TO THIS HOSP Referrals: Tegan Low MD [Primary Care Provider] - 1-2 days Time of Disposition: 17:56
--- NOTE | 2024-03-03 15:39 | XR ---
EXAMINATION TYPE: XR chest 2V DATE OF EXAM: 03/03/2024 COMPARISON: 02/18/2024 HISTORY: 48 year-old female shortness of breath, difficulty breathing TECHNIQUE: AP and lateral views FINDINGS: Heart borderline in size. Diffuse interstitial densities. There are trace pleural effusions and some patchy right basilar opacity. Old healed fracture deformity distal left clavicular shaft. IMPRESSION: 1. Borderline heart size with interstitial densities and trace pleural effusions. Correlate for CHF w ith pulmonary vascular congestion. 2. Some patchy right basilar atelectasis/infiltrate versus early patchy pulmonary edema.
[2024-03-03 15:58] LABS: Basophils # (A) 0.1 k/uL (0-0.2); Basophils % (A) 0 %; Eosinophils # (A) 0.3 k/uL (0-0.7); Eosinophils % (A) 2 %; HCT 33.6 % (34.0-46.0); HGB 9.9 gm/dL (11.4-16.0); Hypochromasia Marked; Lymphocytes # (A) 2.1 k/uL (1.0-4.8); Lymphocytes % (A) 10 %; MCH 36.5 pg (25.0-35.0); MCHC 29.4 g/dL (31.0-37.0); Macrocytosis Marked; Mean Platelet Volume 8.2; Monocytes # (A) 0.7 k/uL (0-1.0); Monocytes % (A) 4 %; Neutrophils # (A) 17.3 k/uL (1.3-7.7); Neutrophils % (A) 84 %; Platelet Count 410 k/uL (150-450); RDW 13.7 % (11.5-15.5); WBC 20.7 k/uL (3.8-10.6)
[2024-03-03 16:10] LABS: INR 1.3 (<1.2); Partial Thromboplastin Time 29.1 sec (22.0-30.0); Prothrombin Time 13.7 sec (10.0-12.5)
[2024-03-03 16:16] LABS: ALT 18 U/L (4-34); AST 138 U/L (14-36); African American GFR (CKD) 71 (>60 ml/min/1.73 sqM); Albumin 2.6 g/dL (3.5-5.0); Alkaline Phosphatase 881 U/L (38-126); Anion Gap 5 mmol/L; Blood Urea Nitrogen 14 mg/dL (7-17); Calcium 8.5 mg/dL (8.4-10.2); Carbon Dioxide 27 mmol/L (22-30); Chloride 104 mmol/L (98-107); Glucose 101 mg/dL (74-99); Non-African American GFR(CKD) 62 (>60 ml/min/1.73 sqM); Potassium 4.4 mmol/L (3.5-5.1); Sodium 136 mmol/L (137-145); Total Bilirubin 1.8 mg/dL (0.2-1.3); Total Protein 6.1 g/dL (6.3-8.2)
[2024-03-03 16:19] LABS: MCV 124.4 fL (80.0-100.0)
[2024-03-03] MEDS: HYDROmorphone 0.5 MG/0.5 ML SYRINGE IVP STA (17:57)
[2024-03-03] MEDS ORDERED: NALOXONE 0.4 MG/ML 1 ML VIAL IV PRN (18:20)
[2024-03-03] MEDS ORDERED: ONDANSETRON 4 MG/2 ML VIAL IVP PRN (18:20)
--- NOTE | 2024-03-03 18:37 | P.HPIM ---
History of Present Illness H&P Date: 03/03/24 48 year old F with PMH of ETOH abuse and cirrhosis presents to the ED for abdominal distention and shortness of breath. Recently admitted for similar complaints on 02/17 and transferred to [facility], she reports she was recently discharged 2 days ago. She reports undergoing paracentesis twice while there. She reports progressively worsening SOB with exertion and abdominal distention which prompted her to come to the ED. No fever or urinary complaints. No bowel complaints. She denies any chest pain, palpitations or lightheadedness. Reports generalized abdominal pain and lower back pain due to the swelling. She quit drinking 2 months ago. In the ED she underwent extensive evaluation. BP 92 /66, HR 116, T 98F, RR 20, 94% on RA. CBC, Coag panel, CMP significant for WBC 20.7, RBC 2.7, Hg 9.9, Hct 33.6, MCV 124.4, PT 13.7, INR 1.3, Na 136, Cr 1.06, glu 101, T. Bili 1.8, AST 138, alk phos 881, alb 2.6. Lactic acid 1.2. Trop < 0.012. BNP 1020. CXR shows concerns for pulmonary vascular congestion. EKG sinus tachycardia with non specific T wave changes. Patient is admitted for further workup and management. General: non toxic, moderate distress, appears at stated age Derm: Warm, dry Head: Atraumatic, normocephalic, symmetric Eyes: EOMI, no lid lag, anicteric sclera Mouth: No lip lesion, mucus membranes moist Cardiovascular: S1 S2 tachy. No murmurs, rubs, gallops Lungs: Decreased BS bilaterally, no accessory muscle use Abdominal: Soft, distended, + thrill, TTP in all 4 quadrants to deep palpation without rebound Ext: No gross muscle atrophy, 3+ LE edema, no contractures Psych: Alert, oriented, appropriate affect Based on my assessment of this patient, this patient meets a high complexity level of care. Decompensated cirrhosis: IR consultation for paracentesis. Start Lasix 40 mg IV QD. Aldactone 25 mg PO BID. Sodium bicarb 650 mg PO QID. GI consulted. Obtain records from [place]. SIRS versus Sepsis: Leukocytosis, [place]. Obtain UA/UCx, BCx. Paracentesis fluid for culture and analysis. Empirically start Rocephin 2g IV QD. endoscopy rn. Pulmonary vascular congestion: With elevated BNP. Obtain Echo. Macrocytic anemia: Likely due to EtOH abuse. No signs of active bleeding. Monitor. Supratherapeutic INR: Likely due to EtOH abuse. CAROL versus CKD: Monitor while on Lasix IV. Smoker: Offered nicotine patch. CODE STATUS: FULL CODE DVT Prophylaxis: Heparin SQ GI Prophylaxis: Designated medical POA if patient is not able to make medical decisions for themselves: Mother I have reviewed the following residential sales consultant notes: ED note I have reviewed the results of the following tests: As above. I have ordered the following tests: As above. I have discussed the care of this patient with the following independent historian: I have independently interpreted the following test below: CXR I have discussed the management of this patient with the following physician: Dr. Bonner Past Medical History Past Medical History: Hypertension Additional Past Medical History / Comment(s): prolapsed rectum History of Any Multi-Drug Resistant Organisms: None Reported Past Surgical History: Section Past Psychological History: No Psychological Hx Reported Smoking Status: Current every day smoker Past Alcohol Use History: Heavy Past Drug Use History: Marijuana Medications and Allergies Home Medications Medication Instructions Recorded Confirmed Type Triamcinolone 0.5% Cream [Kenalog 1 applic TOPICAL BID 02/18/24 03/03/24 History 0.5% Cream] Furosemide [Lasix] 20 mg PO DAILY 03/03/24 03/03/24 History Midodrine [ProAmatine] 10 mg PO TID 03/03/24 03/03/24 History Sodium Bicarbonate Tab 650 mg PO QID 03/03/24 03/03/24 History Spironolactone [Aldactone] 25 mg PO BID 03/03/24 03/03/24 History Allergies Allergy/AdvReac Type Severity Reaction Status Date / Time lavender (Lavandula Allergy Itching Verified 03/03/24 16:21 angustifolia) Physical Exam Vitals: Vital Signs Temp Pulse Resp BP Pulse Ox 03/03/24 17:19 84 20 104/71 96 03/03/24 16:57 98.0 F 106 H 20 87/59 96 03/03/24 13:32 116 H 20 92/66 94 L Intake and Output 03/03/24 03/03/24 03/03/24 06:59 14:59 22:59 Other: Weight 108.862 kg Results CBC & Chem 7: 03/03/24 15:45 03/03/24 15:45 Labs: Abnormal Lab Results - Last 24 Hours (Table) 03/03/24 03/03/24 03/03/24 Range/Units 15:45 15:45 15:45 WBC 20.7 H (3.8-10.6) k/uL RBC 2.70 L (3.80-5.40) m/uL Hgb 9.9 L (11.4-16.0) gm/dL Hct 33.6 L (34.0-46.0) % MCV 124.4 H D (80.0-100.0) fL MCH 36.5 H (25.0-35.0) pg MCHC 29.4 L (31.0-37.0) g/dL Neutrophils # 17.3 H (1.3-7.7) k/uL Macrocytosis Marked A PT 13.7 H (10.0-12.5) sec INR 1.3 H (<1.2) Sodium 136 L (137-145) mmol/L Creatinine 1.06 H (0.52-1.04) mg/dL Glucose 101 H (74-99) mg/dL Total Bilirubin 1.8 H (0.2-1.3) mg/dL AST 138 H (14-36) U/L Alkaline Phosphatase 881 H (38-126) U/L Total Protein 6.1 L (6.3-8.2) g/dL Albumin 2.6 L (3.5-5.0) g/dL
[2024-03-03] MEDS: FUROSEMIDE 10 MG/ML 4 ML VIAL IV SCH (18:43)
[2024-03-03] MEDS: MIDODRINE 5 MG TAB PO SCH (18:48)
[2024-03-03] MEDS: SODIUM BICARBONATE TAB 650 MG TAB PO SCH (20:54)
[2024-03-03] MEDS: SPIRONOLACTONE 25 MG TAB PO SCH (20:57)
[2024-03-03] MEDS ORDERED: HEPARIN SODIUM,PORCINE 5,000 UNIT/ML 1 ML VIAL SQ SCH (21:00)
[2024-03-03] MEDS: HYDROmorphone 0.5 MG/0.5 ML SYRINGE IVP PRN (23:58)
[2024-03-04] MEDS: HYDROcodone/APAP 5-325MG 1 EACH TAB PO PRN (06:37)
[2024-03-04 08:39] LABS: INR 1.32 sec (0.93-1.11)
[2024-03-04 08:41] LABS: Basophils # (A) 0.09 X 10*3/uL (0.00-0.10); Basophils % (A) 0.4 %; Eosinophils # (A) 0.28 X 10*3/uL (0.04-0.35); Eosinophils % (A) 1.4 %; HCT 27.2 % (37.2-46.3); HGB 8.8 g/dL (12.0-15.0); Lymphocytes # (A) 2.07 X 10*3/uL (0.90-5.00); Lymphocytes % (A) 10.3 %; MCHC 32.4 g/dL (32.0-37.0); MCV 123.6 FL (80.0-97.0); Mean Platelet Volume 10.6 FL (9.5-12.2); Monocytes # (A) 1.39 X 10*3/uL (0.20-1.00); Monocytes % (A) 6.9 %; NRBC Per 100 WBC 0 X 10*3/uL (0.00-0.01); Neutrophils # (A) 16.28 X 10*3/uL (1.80-7.70); Neutrophils % (A) 80.7 %; Platelet Count 275 X 10*3/uL (140-440); RDW 14.1 % (11.5-14.5); WBC 20.18 X 10*3/uL (4.50-10.00)
[2024-03-04 08:42] LABS: ALT 15 U/L (8-44); AST 110 U/L (13-35); Albumin 2.2 g/dL (3.8-4.9); Albumin/Globulin Ratio 0.76 Ratio (1.60-3.17); Alkaline Phosphatase 710 U/L (41-126); BUN/Creat Ratio 15.11 Ratio (12.00-20.00); Blood Urea Nitrogen 13.6 mg/dL (9.0-27.0); Calcium 7.9 mg/dL (8.7-10.3); Carbon Dioxide 25.5 mmol/L (21.6-31.8); Chloride 104 mmol/L (96-109); Globulin 2.9 g/dL (1.6-3.3); Glucose 86 mg/dL (70-110); Potassium 4.4 mmol/L (3.5-5.5); Sodium 139 mmol/L (135-145); Total Bilirubin 1.2 mg/dL (0.3-1.2); Total Protein 5.1 g/dL (6.2-8.2)
--- NOTE | 2024-03-04 10:19 | US ---
EXAMINATION TYPE: US abdomen limited DATE OF EXAM: 03/04/2024 COMPARISON: Correlation CT 02/18/2024 CLINICAL INDICATION: Female, 48 years old with history of assess for fluid pocket; TECHNIQUE: Multiple sonographic images of the L4 abdominal quadrants is obtained. FINDINGS: Scattered mild to moderate abdominal fluid, seen in all 4 quadrants, more so in the upper abdomen. IMPRESSION: Mild to moderate abdominal ascites.
--- NOTE | 2024-03-04 11:25 | CA ---
Transthoracic Echo Report Name: Suzi Dan Age: 48 Gender: F : 1975 Exam Date: 03/04/2024 09:45 Exam Location: [facility] Ht (in): 64 Wt (lb): 240 Ordering Physician: Joel Galvan MD Attending/Referring Phys: Lag Screwer Martha Bragg RDCS Procedure CPT: Indications: sob Cardiac Hx: Technical Quality: Good Contrast 1: Total Dose (mL): Contrast 2: Total Dose (mL): MEASUREMENTS (Male / Female) Normal Values 2D ECHO LV Diastolic Diameter PLAX 4.9 cm 4.2 - 5.9 / 3.9 - 5.3 cm LV Systolic Diameter PLAX 3.6 cm IVS Diastolic Thickness 0.9 cm 0.6 - 1.0 / 0.6 - 0.9 cm LVPW Diastolic Thickness 0.9 cm 0.6 - 1.0 / 0.6 - 0.9 cm LV Relative Wall Thickness 0.4 LVOT Diameter 2.4 cm LV Diastolic Volume MOD BP 87.4 cm??? 67 - 155 / 56 - 104 cm??? LV Systolic Volume MOD BP 35.1 cm??? 22 - 58 / 19 - 49 cm??? LV Ejection Fraction MOD BP 59.8 % >= 55 % LV Cardiac Index MOD BP 1977.8 cm???/min???m??? LV Diastolic Volume MOD 4C 87.2 cm??? LV Systolic Volume MOD 4C 34.5 cm??? LV Ejection Fraction MOD 4C 60.4 % LV Cardiac Index MOD 4C 1992.0 cm???/min???m??? LV Diastolic Length 4C 8.3 cm LV Systolic Length 4C 6.2 cm LV Diastolic Volume MOD 2C 86.0 cm??? LV Systolic Volume MOD 2C 33.2 cm??? LV Ejection Fraction MOD 2C 61.4 % LV Cardiac Index MOD 2C 1995.6 cm???/min???m??? LV Diastolic Length 2C 8.1 cm LV Systolic Length 2C 5.8 cm LA Volume 50.5 cm??? 18 - 58 / 22 - 52 cm??? LA Volume Index 22.2 cm???/m??? 16 - 28 cm???/m??? Ascending Aorta Diameter 3.1 cm DOPPLER AV Peak Velocity 115.5 cm/s AV Peak Gradient 5.3 mmHg AV Mean Velocity 77.1 cm/s AV Mean Gradient 2.7 mmHg AV Velocity Time Integral 22.2 cm LVOT Peak Velocity 101.6 cm/s LVOT Peak Gradient 4.1 mmHg LVOT Velocity Time Integral 19.3 cm LVOT Stroke Volume 84.5 cm??? LVOT Stroke Volume Index 40.0 ml/m??? LVOT Cardiac Index 3193.6 cm???/min???m??? AV Area Cont Eq vti 3.8 cm??? AV Area Cont Eq pk 3.9 cm??? MV Area PHT 5.8 cm??? Mitral E Point Velocity 68.3 cm/s Mitral A Point Velocity 56.9 cm/s Mitral E to A Ratio 1.2 MV Deceleration Time 131.3 ms TR Peak Velocity 234.9 cm/s TR Peak Gradient 22.1 mmHg Right Atrial Pressure 5.0 mmHg Pulmonary Artery Systolic Pressu 27.1 mmHg Right Ventricular Systolic Press 27.1 mmHg PV Peak Velocity 83.2 cm/s PV Peak Gradient 2.8 mmHg FINDINGS Left Ventricle Left ventricular ejection fraction is estimated at 55-60 %. Left ventricular cavity size normal. Left ventricular wall thickness normal. No obvious regional wall motion abnormalities. Right Ventricle Normal right ventricular size and function. Right ventricular systolic pressure within normal limits. Right Atrium Normal right atrial size. Left Atrium Normal left atrial size. Mitral Valve Structurally normal mitral valve. No evidence for mitral valve prolapse. No mitral stenosis. Mild mitral regurgitation. Aortic Valve Trileaflet aortic valve. No aortic valve stenosis or regurgitation. Tricuspid Valve Structurally normal tricuspid valve. No tricuspid stenosis. Mild tricuspid regurgitation. Pulmonic Valve Pulmonic valve not well visualized. No pulmonic stenosis. Trace pulmonic regurgitation. Pericardium No pericardial effusion. Aorta Normal size aortic root and proximal ascending aorta. CONCLUSIONS Normal LV function Previewed by: Dr. Fortino John MD (Electronically Signed) Final Date: 04 March 2024 11:24
--- NOTE | 2024-03-04 12:15 | P.CONS ---
History of Present Illness - Reason for Consult Consult date: 03/04/24 Cirrhosis Requesting physician: Joel Galvan - Chief Complaint Abdominal distention - History of Present Illness This a pleasant 48-year-old female who presented to the emergency department with complaints of abdominal distention and difficulty with breathing. Past medical history includes hypertension, current daily smoker, heavy alcohol use, and recent diagnosis of cirrhosis of the liver with ascites. Patient states she was recently seen at [facility] where she was treated for ascites and also states she had a colonoscopy during that time which she states was normal. She states she is supposed to follow-up with a refrigerator glazier but has not establ ished with one yet. She was started on spironolactone 25 mg twice daily and Lasix 20 mg daily. States she has a history of heavy alcohol use for at least 10 years drinking a pint a day or more. She states she quit about 2 weeks ago. She presented with leukocytosis with a WBC of 20.7, elevation of LFTs, bilirubin and INR consistent with underlying liver disease. she also states about a year ago she was told that she likely had some fatty liver disease but it was not until recent that she was told cirrhosis and had the ascites status post paracentesis Review of Systems REVIEW OF SYSTEMS: CARDIOPULMONARY: No chest pain or shortness of breath. Gastrointestinal: Abdominal pain. Abdominal distention. No nausea or vomiting. No hematemesis, coffee-ground emesis. No rectal bleeding, or melena. GENITOURINARY: No dysuria or hematuria. MUSCULOSKELETAL: Reports normal range of motion. SKIN: No rashes. No jaundice. Lower extremity edema. ENDOCRINE: No chills, fevers. No excessive weight gain or loss. No polydipsia or polyuria. PSYCHIATRIC: Unremarkable. NEUROLOGY: No change in mental status. Denies dizziness, headache. ENT: Vision unremarkable. CONSTITUTIONAL: No recent weight loss. No fever, chills, night sweats. Past Medical History Past Medical History: Hypertension Additional Past Medical History / Comment(s): prolapsed rectum History of Any Multi-Drug Resistant Organisms: None Reported Past Surgical History: Section Past Anesthesia/Blood Transfusion Reactions: No Reported Reaction Past Psychological History: No Psychological Hx Reported Smoking Status: Current every day smoker Past Alcohol Use History: Heavy Past Drug Use History: Marijuana Medications and Allergies Home Medications Medication Instructions Recorded Confirmed Type Triamcinolone 0.5% Cream [Kavonalog 1 applic TOPICAL BID 02/18/24 03/03/24 History 0.5% Cream] Furosemide [Lasix] 20 mg PO DAILY 03/03/24 03/03/24 History Midodrine [ProAmatine] 10 mg PO TID 03/03/24 03/03/24 History Sodium Bicarbonate Tab 650 mg PO QID 03/03/24 03/03/24 History Spironolactone [Aldactone] 25 mg PO BID 03/03/24 03/03/24 History Allergies Allergy/AdvReac Type Severity Reaction Status Date / Time lavender (Lavandula Allergy Itching Verified 03/03/24 16:21 angustifolia) Physical Exam Vitals: Vital Signs Temp Pulse Pulse Resp BP BP Pulse Ox 03/04/24 06:32 95/59 03/04/24 00:51 98.3 F 91 15 92/64 90 L 03/03/24 20:54 16 03/03/24 20:00 98.2 F 99 22 107/72 95 03/03/24 19:29 100 22 103/75 93 L 03/03/24 17:19 84 20 104/71 96 03/03/24 16:57 98.0 F 106 H 20 87/59 96 03/03/24 13:32 116 H 20 92/66 94 L Intake and Output 03/03/24 03/04/24 03/04/24 22:59 06:59 14:59 Other: # Voids 3 Weight 108.862 kg General appearance: The patient is alert, oriented, appears in no acute distress. HET: Head is normocephalic and atraumatic. Conjunctiva pink. Sclera anicteric. Neck: Supple without lymphadenopathy. Trachea midline. Heart: Regular. Lungs: Equal expansion, normal respiratory effort. Abdomen: Soft, nontender distended, ascites. Skin: No rashes. No jaundice. Extremities: Normal skin color and turgor. Bilateral lower extremity edema. Neurological: No focal deficits. Alert and oriented x3. Results CBC & Chem 7: 03/04/24 05:37 03/04/24 05:37 Labs: Abnormal Lab Results - Last 24 Hours (Table) 03/03/24 03/03/24 03/03/24 Range/Units 15:45 15:45 15:45 WBC 20.7 H (3.8-10.6) k/uL RBC 2.70 L (3.80-5.40) m/uL Hgb 9.9 L (11.4-16.0) gm/dL Hct 33.6 L (34.0-46.0) % MCV 124.4 H D (80.0-100.0) fL MCH 36.5 H (25.0-35.0) pg MCHC 29.4 L (31.0-37.0) g/dL Immature Gran # (0.00-0.04) X 10*3/uL Neutrophils # 17.3 H (1.3-7.7) k/uL Monocytes # (0.20-1.00) X 10*3/uL Macrocytosis Marked A PT 13.7 H (10.0-12.5) sec INR 1.3 H (<1.2) Sodium 136 L (137-145) mmol/L Creatinine 1.06 H (0.52-1.04) mg/dL Glucose 101 H (74-99) mg/dL Calcium (8.7-10.3) mg/dL Total Bilirubin 1.8 H (0.2-1.3) mg/dL AST 138 H (14-36) U/L Alkaline Phosphatase 881 H (38-126) U/L Total Protein 6.1 L (6.3-8.2) g/dL Albumin 2.6 L (3.5-5.0) g/dL Albumin/Globulin Ratio (1.60-3.17) Ratio 03/04/24 03/04/24 03/04/24 Range/Units 05:37 05:37 05:37 WBC 20.18 H (3.8-10.6) k/uL RBC 2.20 L (3.80-5.40) m/uL Hgb 8.8 L (11.4-16.0) gm/dL Hct 27.2 L (34.0-46.0) % MCV 123.6 H (80.0-100.0) fL MCH 40.0 H (25.0-35.0) pg MCHC (31.0-37.0) g/dL Immature Gran # 0.07 H (0.00-0.04) X 10*3/uL Neutrophils # 16.28 H (1.3-7.7) k/uL Monocytes # 1.39 H (0.20-1.00) X 10*3/uL Macrocytosis PT 14.0 H (10.0-12.5) sec INR 1.32 H (<1.2) Sodium (137-145) mmol/L Creatinine (0.52-1.04) mg/dL Glucose (74-99) mg/dL Calcium 7.9 L (8.7-10.3) mg/dL Total Bilirubin (0.2-1.3) mg/dL AST 110 H (14-36) U/L Alkaline Phosphatase 710 H (38-126) U/L Total Protein 5.1 L (6.3-8.2) g/dL Albumin 2.2 L (3.5-5.0) g/dL Albumin/Globulin Ratio 0.76 L (1.60-3.17) Ratio Comments: Ultrasound reports mild to moderate abdominal ascites Assessment and Plan (1) Ascites Narrative/Plan: 48-year-old female with a longstanding history of regular daily alcohol use admitting to a pint or more day up until about 2 weeks ago when she quit. Recent diagnosis of thank you cirrhosis of the liver with ascites from [facility] and had undergone sounds like to paracentesis during that time. Ascites likely secondary to cirrhosis of the liver and portal hypertension. Agree with increasing Lasix to 40 mg daily will increase spironolactone to 50 mg twice daily. Continue with low-sodium diet. Recommend paracentesis with fluid studies including cell count and culture As patient had leukocytosis and need to consider possible SBP. Will obtain [facility] records. Current Visit: Yes Status: Acute Code(s): R18.8 - OTHER ASCITES SNOMED Code(s): 887793733 (2) Alcohol abuse Current Visit: Yes Status: Acute Code(s): F10.10 - ALCOHOL ABUSE, UNCOMPLICATED SNOMED Code(s): 80441757 (3) Leukocytosis Current Visit: No Status: Acute Code(s): D72.829 - ELEVATED WHITE BLOOD CELL COUNT, UNSPECIFIED SNOMED Code(s): 131837611 Plan: 1. Continue symptomatic and supportive care 2. Low-sodium diet 3. Agree with Lasix 40 mg daily, will increase Aldactone to 50 mg twice daily 4. IR consulted for paracentesis with fluid studies 5. Discussed with patient importance of alcohol abstinence 6. Will continue to follow with further recommendations Thank you for this consultation, we will continue to follow. Dr. Mary John I agree with the dictator's note, documented as a scribe by Kalpana Vega.
--- NOTE | 2024-03-04 14:44 | P.PN ---
Subjective Progress Note Date: 03/04/24 48 year old F with PMH of ETOH abuse and cirrhosis presents to the ED for abdominal distention and shortness of breath. Recently admitted for similar complaints on 02/17 and transferred to [facility], she reports she was recently discharged 2 days ago. She reports undergoing paracentesis twice while there. She reports progressively worsening SOB with exertion and abdominal distention which prompted her to come to the ED. No fever or urinary complaints. No bowel complaints. She denies any chest pain, palpitations or lightheadedness. Reports generalized abdominal pain and lower back pain due to the swelling. She quit drinking 2 months ago. In the ED she underwent extensive evaluation. BP 92/66, HR 116, T 98F, RR 20, 94% on RA. CBC, Coag panel, CMP significant for WBC 20.7, RBC 2.7, Hg 9.9, Hct 33.6, MCV 124.4, PT 13.7, INR 1.3, Na 136, Cr 1.06, glu 101, T. Bili 1.8, AST 138, alk phos 881, alb 2.6. Lactic acid 1.2. Trop < 0.012. BNP 1020. CXR shows concerns for pulmonary vascular congestion. EKG sinus tachycardia with non specific T wave changes. Patient is admitted for further workup and management. 03/04 Patient was seen and examined. Feeling well. No complaints. CBC, CMP, Coag panel significant for WBC 20.18, RBC 2.2, Hg 8.8, Hct 27.2, MCV 123.6, PT 14, INR 1.32, Ca 7.9, AST 110, alk phos 710, alb 2.2. GI consulted, Aldactone increased. Plans for paracentesis today. Echo EF 55-60%. General: non toxic, moderate distress, appears at stated age Derm: Warm, dry Head: Atraumatic, normocephalic, symmetric Eyes: EOMI, no lid lag, anicteric sclera Mouth: No lip lesion, mucus membranes moist Cardiovascular: S1 S2 tachy. No murmurs, rubs, gallops Lungs: Decreased BS bilaterally, no accessory muscle use Abdominal: Soft, distended, + thrill, TTP in all 4 quadrants to deep palpation w ithout rebound Ext: No gross muscle atrophy, 3+ LE edema, no contractures Psych: Alert, oriented, appropriate affect Based on my assessment of this patient, this patient meets a high complexity level of care. Decompensated cirrhosis: IR consultation for paracentesis. Lasix 40 mg IV QD. Aldactone 50 mg PO BID. Sodium bicarb 650 mg PO QID. GI consulted. Obtain records from [place]. SIRS versus Sepsis: Leukocytosis, [place]. Obtain UA/UCx, BCx. Paracentesis fluid for culture and analysis. Empirically start Rocephin 2g IV QD. security monitor. Pulmonary vascular congestion: With elevated BNP. Obtain Echo. Macrocytic anemia: Likely due to EtOH abuse. No signs of active bleeding. Monitor. Supratherapeutic INR: Likely due to EtOH abuse. CAROL versus CKD: Monitor while on Lasix IV. Smoker: Offered nicotine patch. CODE STATUS: FULL CODE DVT Prophylaxis: Heparin SQ GI Prophylaxis: Designated medical POA if patient is not able to make medical decisions for themselves: Mother I have reviewed the following educational consultant notes: GI note I have reviewed the results of the following tests: CBC, Coag panel, CMP I have ordered the following tests: I have discussed the care of this patient with the following independent historian: RICARDA I have independently interpreted the following test below: I have discussed the management of this patient with the following physician: Objective - Vital Signs Vital signs: Vital Signs Temp 97.7 F 03/04/24 07:06 Pulse 91 03/04/24 14:32 Resp 12 03/04/24 14:32 BP 86/60 03/04/24 14:32 Pulse Ox 94 L 03/04/24 14:32 FiO2 Intake & Output 03/03/24 03/04/24 03/04/24 18:59 06:59 18:59 Weight 108.862 kg 108.862 kg Other: Voiding Method Toilet # Voids 3 - Labs CBC & Chem 7: 03/04/24 05:37 03/04/24 05:37 Labs: Abnormal Lab Results - Last 24 Hours (Table) 03/03/24 03/03/24 03/03/24 Range/Units 15:45 15:45 15:45 WBC 20.7 H (3.8-10.6) k/uL RBC 2.70 L (3.80-5.40) m/uL Hgb 9.9 L (11.4-16.0) gm/dL Hct 33.6 L (34.0-46.0) % MCV 124.4 H D (80.0-100.0) fL MCH 36.5 H (25.0-35.0) pg MCHC 29.4 L (31.0-37.0) g/dL Immature Gran # (0.00-0.04) X 10*3/uL Neutrophils # 17.3 H (1.3-7.7) k/uL Monocytes # (0.20-1.00) X 10*3/uL Macrocytosis Marked A PT 13.7 H (10.0-12.5) sec INR 1.3 H (<1.2) Sodium 136 L (137-145) mmol/L Creatinine 1.06 H (0.52-1.04) mg/dL Glucose 101 H (74-99) mg/dL Calcium (8.7-10.3) mg/dL Total Bilirubin 1.8 H (0.2-1.3) mg/dL AST 138 H (14-36) U/L Alkaline Phosphatase 881 H (38-126) U/L Total Protein 6.1 L (6.3-8.2) g/dL Albumin 2.6 L (3.5-5.0) g/dL Albumin/Globulin Ratio (1.60-3.17) Ratio 03/04/24 03/04/24 03/04/24 Range/Units 05:37 05:37 05:37 WBC 20.18 H (3.8-10.6) k/uL RBC 2.20 L (3.80-5.40) m/uL Hgb 8.8 L (11.4-16.0) gm/dL Hct 27.2 L (34.0-46.0) % MCV 123.6 H (80.0-100.0) fL MCH 40.0 H (25.0-35.0) pg MCHC (31.0-37.0) g/dL Immature Gran # 0.07 H (0.00-0.04) X 10*3/uL Neutrophils # 16.28 H (1.3-7.7) k/uL Monocytes # 1.39 H (0.20-1.00) X 10*3/uL Macrocytosis PT 14.0 H (10.0-12.5) sec INR 1.32 H (<1.2) Sodium (137-145) mmol/L Creatinine (0.52-1.04) mg/dL Glucose (74-99) mg/dL Calcium 7.9 L (8.7-10.3) mg/dL Total Bilirubin (0.2-1.3) mg/dL AST 110 H (14-36) U/L Alkaline Phosphatase 710 H (38-126) U/L Total Protein 5.1 L (6.3-8.2) g/dL Albumin 2.2 L (3.5-5.0) g/dL Albumin/Globulin Ratio 0.76 L (1.60-3.17) Ratio
--- NOTE | 2024-03-04 16:08 | US ---
EXAMINATION TYPE: US paracentesis abd w/image, diagnostic and therapeutic DATE OF EXAM: 03/04/2024 CLINICAL HISTORY: 48-year-old female with distention and ascites, referred for diagnostic paracentes is. The procedure was discussed with the patient. The risks, complications, benefits, and alternatives we re discussed and any questions were answered. Informed consent was obtained. The patient was placed s upine on the ultrasound table and prepped and draped in the usual sterile fashion. All elements of maximal barrier technique were utilized. Ultrasound was utilized to determine the precise skin entry site along the right flank. A 5 Romansh One-Step catheter and trocar technique was utilized to access the ascites collection under direct ultrasound guidance. Approximately 3.6 liters of clear, straw-colored fluid was removed. An initial 120 mL sample was labe led and sent for laboratory analysis. Catheter was removed, hemostasis obtained, and a dressing placed. The patient was stable throughout the procedure and remained stable upon discharge from Department of Radiology. IMPRESSION: Successful diagnostic and therapeutic paracentesis under ultrasound guidance. 3.6 L of fluid removed.
[2024-03-04] MEDS: SPIRONOLACTONE 25 MG TAB PO SCH (21:26)
[2024-03-05 04:53] LABS: Appearance,BF Cloudy (Clear)
[2024-03-05 05:21] LABS: T. Protein, Body Fluid Source Ascites; Total Protein, Body Fluid 1420 mg/dL
--- NOTE | 2024-03-05 09:34 | P.PN ---
Subjective Progress Note Date: 03/05/24 Principal diagnosis: Liver cirrhosis, ascites This a pleasant 48-year-old female who presented to the emergency department with complaints of abdominal distention and difficulty with breathing. Past medical history includes hypertension, current daily smoker, heavy alcohol use, and recent diagnosis of cirrhosis of the liver with ascites. Patient states she was recently seen at [facility] where she was treated for ascites and also states she had a colonoscopy during that time which she states was normal. She states she is supposed to follow-up with a bingo manager but has not established with one yet. She was started on spironolactone 25 mg twice daily and Lasix 20 mg daily. States she has a history of heavy alcohol use for at least 10 years drinking a pint a day or more. She states she quit about 2 weeks ago. She presented with leukocytosis with a WBC of 20.7, elevation of LFTs, bilirubin and INR consistent with underlying liver disease. she also states about a year ago she was told that she likely had some fatty liver disease but it was not until recent that she was told cirrhosis and had the ascites status post paracentesis 03/05/2024 Patient seen and examined today as a follow-up. Yesterday she underwent paracentesis with 3.6 L of fluid removed. Records received from [facility]. Patient was discharged on 02/25/2024. Diagnosis of decompensated cirrhosis, leukocytosis, sepsis anemia and hypotension. Ultrasounds of the abdomen there reported diffuse heterogeneous echotexture of liver consistent with cirrhosis. She was treated with IV Rocephin for empiric treatment for possible spontaneous bacterial peritonitis. She underwent paracentesis on 829 with 2.7 L removed and a negative culture and is well as 3 L removed on 02/25/2024. Antibiotics discontinued for SBP. Patient had a macrocytic anemia with thrombocytosis and neutrophilia there. She was discharged recommended to follow with gastroenterology. Patient currently states abdominal distention and discomfort is improved. She has had reduction in her swelling in her lower extremities. She is afebrile. Today's labs currently pending. She remains on empiric IV antibiotics Objective - Vital Signs Vital signs: Vital Signs Temp 98.6 F 03/05/24 01:09 Pulse 96 03/05/24 01:09 Resp 14 03/05/24 01:09 BP 93/59 03/05/24 05:53 Pulse Ox 100 03/05/24 01:09 FiO2 Intake & Output 03/04/24 03/05/24 03/05/24 18:59 06:59 18:59 Other: Voiding Method Toilet Toilet # Voids 3 2 - Exam General appearance: The patient is alert, oriented, appears in no acute distress. HET: Head is normocephalic and atraumatic. Conjunctiva pink. Sclera anicteric. Neck: Supple without lymphadenopathy. Abdomen: Soft, nontender, nondistended. No guarding or rigidity. Extremities: Normal skin color and turgor. Pedal edema, improving. Skin: No rashes, no jaundice Neurological: No focal deficits. Alert and oriented. - Labs CBC & Chem 7: 03/04/24 05:37 03/04/24 05:37 Labs: Abnormal Lab Results - Last 24 Hours (Table) 03/04/24 Range/Units 14:12 Fluid Appearance Cloudy A (Clear) Microbiology - Last 24 Hours (Table) 03/03/24 20:34 Blood Culture - Preliminary Blood Assessment and Plan (1) Ascites Narrative/Plan: 48-year-old female with a longstanding history of regular daily alcohol use admitting to a pint or more day up until about 2 weeks ago when she quit. Recent diagnosis of thank you cirrhosis of the liver with ascites from [facility] and had undergone sounds like to paracentesis during that time. Ascites likely secondary to cirrhosis of the liver and portal hypertension. Agree with increasing Lasix to 40 mg daily will increase spironolactone to 50 mg twice daily. Continue with low-sodium diet. Recommend paracentesis with fluid studies including cell count and culture As patient had leukocytosis and need to consider possible SBP, however after reviewing reports from [facility] patient had leukocytosis there as well he had fluid cultures completed with no evidence of SBP and negative cultures. Unclear etiology of leukocytosis. Patient with macrocytic anemia, thrombocytosis consider possible hematology workup. This was also discussed at [facility] for unclear etiology of leukocytosis. Current Visit: Yes Status: Acute Code(s): R18.8 - OTHER ASCITES SNOMED Code(s): 016780604 (2) Alcohol abuse Current Visit: Yes Status: Acute Code(s): F10.10 - ALCOHOL ABUSE, UNCOMPLICATED SNOMED Code(s): 87413955 (3) Leukocytosis Narrative/Plan: Doubt secondary to SBP as patient has had leukocytosis since her last admission at [facility]. Fluid studies with cultures were completed fluid cultures were negative. Patient was on empiric Rocephin. They were considering possible consultation to hematology Current Visit: No Status: Acute Code(s): D72.829 - ELEVATED WHITE BLOOD CELL COUNT, UNSPECIFIED SNOMED Code(s): 366229145 (4) Liver cirrhosis, alcoholic Current Visit: Yes Status: Acute Code(s): K70.30 - ALCOHOLIC CIRRHOSIS OF LIVER WITHOUT ASCITES SNOMED Code(s): 974933319 Plan: 1. Continue symptomatic and supportive care 2. Low-sodium diet 3. Agree with Lasix 40 mg daily, will increase Aldactone to 50 mg twice daily 4. Status post paracentesis 5. Discussed with patient importance of alcohol abstinence 6. Hospital records reviewed from [facility] stay with discharge of 02/25/2024. Unclear etiology of leukocytosis. Doubt SBP. Current fluid cultures pending. 7. No further workup from gastroenterology. Recommend patient follow-up with GI in the next 1 to 2 weeks. Thank you for allowing us to participate in the care of the patient, the GI service will sign off, gastroenterology will not be available at the hospital this weekend. If further evaluation by gastroenterology is required the patient will need transfer as per the primary team's discretion. Dr. Mary John I agree with the dictator's note, documented as a scribe by Kalpana Vega.
--- NOTE | 2024-03-05 10:48 | P.DS ---
Providers Date of admission: 03/03/24 18:00 Expected date of discharge: 03/05/24 Attending physician: Joel Galvan MD Consults: 03/03/24 18:21 Consult Physician Routine Consulting Provider: Myra John Consult Reason/Comments: Cirrhosis Do you want consulting provider notified?: Yes Primary care physician: [facility] Course: ago. She reports undergoing paracentesis twice while there. She reports progressively worsening SOB with exertion and abdominal distention which prompted her to come to the ED. No fever or urinary complaints. No bowel complai nts. She denies any chest pain, palpitations or lightheadedness. Reports generalized abdominal pain and lower back pain due to the swelling. She quit drinking 2 months ago. In the ED she underwent extensive evaluation. BP 92/66, HR 116, T 98F, RR 20, 94% on RA. CBC, Coag panel, CMP significant for WBC 20.7, RBC 2.7, Hg 9.9, Hct 33.6, MCV 124.4, PT 13.7, INR 1.3, Na 136, Cr 1.06, glu 101, T. Bili 1.8, AST 138, alk phos 881, alb 2.6. Lactic acid 1.2. Trop < 0.012. BNP 1020. CXR shows concerns for pulmonary vascular congestion. EKG sinus tachycardia with non specific T wave changes. Patient is admitted for further workup and management. 03/04 Patient was seen and examined. Feeling well. No complaints. CBC, CMP, Coag panel significant for WBC 20.18, RBC 2.2, Hg 8.8, Hct 27.2, MCV 123.6, PT 14, INR 1.32, Ca 7.9, AST 110, alk phos 710, alb 2.2. GI consulted, Aldactone increased. Plans for paracentesis today. Echo EF 55-60%. She underwent paracentesis with IR and removal of 3.6L fluid. Echo showed EF 55- 60%. Review of [place] records show that she had persistently elevated WBC count and no signs of infection was found. Doubtful that she has SBP, antibiotics will be discontinued. Discussed with Kalpana GORDILLO, will attempt to set up paracentesis in the outpatient setting through Dr. John. Plans for discharge home today. Advised low salt diet and medication compliance. Follow up with Dr. John and Dr. Morgan within 1 week and PCP within 1-2 days. Increase Lasix to 40 mg PO QD and Aldactone to 50 mg PO BID. General: non toxic, moderate distress, appears at stated age Derm: Warm, dry Head: Atraumatic, normocephalic, symmetric Eyes: EOMI, no lid lag, anicteric sclera Mouth: No lip lesion, mucus membranes moist Cardiovascular: S1 S2 tachy. No murmurs, rubs, gallops Lungs: Decreased BS bilaterally, no accessory muscle use Abdominal: Soft, distended, + thrill, non TTP Ext: No gross muscle atrophy, 1+ LE edema, no contractures Psych: Alert, oriented, appropriate affect Discharge Diagnosis: Decompensated cirrhosis SIRS versus Sepsis Pulmonary vascular congestion Macrocytic anemia Supratherapeutic INR CAROL versus CKD Smoker This complex discharge took 35 minutes to complete. Patient Condition at Discharge: Stable Plan - Discharge Summary Discharge Rx Participant: No New Discharge Prescriptions: New HYDROcodone/APAP 5-325MG [[place] 5-325] 1 each PO Q4HR PRN #18 tab PRN Reason: Moderate Pain (Scale 4 To 6) Spironolactone [Aldactone] 50 mg PO BID #120 tab Continue Triamcinolone 0.5% Cream [Kenalog 0.5% Cream] 1 applic TOPICAL BID Sodium Bicarbonate Tab 650 mg PO QID Midodrine [ProAmatine] 10 mg PO TID Changed Furosemide [Lasix] 40 mg PO DAILY #60 tab Discontinued Spironolactone [Aldactone] 25 mg PO BID Discharge Medication List Triamcinolone 0.5% Cream [Kenalog 0.5% Cream] 1 applic TOPICAL BID 02/18/24 [History] Midodrine [ProAmatine] 10 mg PO TID 03/03/24 [History] Sodium Bicarbonate Tab 650 mg PO QID 03/03/24 [History] Furosemide [Lasix] 40 mg PO DAILY #60 tab 03/05/24 [Rx] HYDROcodone/APAP 5-325MG [[place] 5-325] 1 each PO Q4HR PRN #18 tab 03/05/24 [Rx] Spironolactone [Aldactone] 50 mg PO BID #120 tab 03/05/24 [Rx] Follow up Appointment(s)/Referral(s): Ciera Navas, ETELVINA [REFERRING] - 1 Week (Gastroenterology follow-up for new onset cirrhosis of the liver and ascites) Myra John MD [STAFF PHYSICIAN] - 1 Week Tegan Low MD [Primary Care Provider] - 1-2 days Patient Instructions/Handouts: Cirrhosis (DC), Low-Sodium Diet (DC) Activity/Diet/Wound Care/Special Instructions: Low-sodium diet limit to 2 g or under a day Alcohol abstinence Discharge Disposition: HOME SELF-CARE
[2024-03-05 11:44] VITALS: BP 81/56; PULSE 92; RESP 18; TEMP 98.8
--- NOTE | 2024-03-05 12:26 | CDI ---
Documentation Clarification Form Date: 03/05/2024 From: Marcela Allen RN CCDS Phone: [phone] Admit Date: 03/03/2024 06:00:00 PM Patient Name: Suzi Dan Visit Number: [id number] Discharge Date: 03/05/2024 11:40:00 AM ATTENTION: The Clinical Documentation Specialists (CDI) and [facility] Coding Staff appreciate your assistance in clarifying documentation. Please respond to the clarification below the line at the bottom and electronically sign. The CDI & [facility] Coding staff will review the response and follow-up if needed. Please note: Queries are made part of the Legal Health Record. If you have any questions, please contact the author of this message via ITS. Doctor/Provider: Joel Galvan MD: There is documentation of SIRS vs Sepsis in the H&P 03/03 and in subsequent IM progress notes. Additional clarification is requested. History/Risk Factors: 48-year-old female with a history of HTN, alcohol abuse and cirrhosis who presents with abdominal distention and shortness of breath, found to have decompensated cirrhosis and ascites Clinical Indicators: 03/03 Triage VS: 92/66, 116, 20, 94% room air 03/03-03/05 Temperature max: 98.8 on 03/05 Pulse rate max: 116 on 03/03 03/03 H&P: "SIRS versus Sepsis: Leukocytosis, Tachycardia. Obtain UA/UCx, BCx. Paracentesis fluid for culture and analysis. Empirically start Rocephin 2g IV QD." 03/05 GI PN, Assessment and Plan: "Recommend paracentesis with fluid studies including cell count and culture as patient had leukocytosis and need to consider possible SBP, however after reviewing reports from [facility] patient had leukocytosis there as well, he had fluid cultures completed with no evidence of SBP and negative cultures. Unclear etiology of leukocytosis." 03/03, 03/04 WBC: 20.7, 20.18 03/03 Lactic Acid: 1.2 03/03 Blood Culture: No growth after 24 hours 03/04 Ascites: Appearance: Cloudy, WBC: 21, RBC: <2000, Polynuclear WBC: 17%, Lymphocyte: 38%, Monocytes: 16%, Mesothelial Cell: 29%, Total Protein: 1420 03/03 Chest X Ray, Impression: "1. Borderline heart size with interstitial densities and trace pleural effusions. Correlate for CHF with pulmonary vascular congestion. 2. Some patchy right basilar atelectasis/infiltrate versus early patchy pulmonary edema." Treatment: Rocephin 2gram IV Q24 hours 03/03-03/04 Can you please clarify SIRS vs Sepsis? [ x] SIRS [ ] Sepsis [ ] Sepsis ruled out [ ] Other, please specify [ ] Unable to determine MTDD
--- NOTE | 2024-03-05 12:40 | CDI ---
Documentation Clarification Form Date: 03/05/2024 From: Marcela Allen RN CCDS Phone: [phone] Admit Date: 03/03/2024 06:00:00 PM Patient Name: Suzi Dna Visit Number: [id number] Discharge Date: 03/05/2024 11:40:00 AM ATTENTION: The Clinical Documentation Specialists (CDI) and [facility] Coding Staff appreciate your assistance in clarifying documentation. Please respond to the clarification below the line at the bottom and electronically sign. The CDI & [facility] Coding staff will review the response and follow-up if needed. Please note: Queries are made part of the Legal Health Record. If you have any questions, please contact the author of this message via ITS. Doctor/Provider: Joel Galvan MD: There is documentation of CAROL versus CKD in the H&P 03/03 an in subsequent IM progress notes. Additional clarification is requested. History/Risk Factors: 48-year-old female with a history of HTN, alcohol abuse and cirrhosis who presents with abdominal distention and shortness of breath, found to have decompensated cirrhosis and ascites Clinical Indicators: 03/03 Triage VS: 92/66, 116, 20, 94% room air 03/03 H&P: "CAROL versus CKD: Monitor while on Lasix IV." 03/03, 03/04 BUN: 14, 13.6 Creatinine: 1.06, 0.9 Treatment: Monitor BUN and Creatinine Lasix 40mg IV daily 03/03-03/04 Aldactone 25mg oral BID 03/03-03/04, then 50mg 03/04-03/05 Can you please clarify CAROL versus CKD? [ ] CAROL [ ] CKD, please specify stage [ ] CAROL on CKD, please specify stage [ ] CAROL ruled out [ ] CAROL and CKD ruled out [ ] Other, please specify [x ] Unable to determine (no baseline) MTDD
== END 2024-03-05 11:40 | disposition home or self-care (01) | DRG 280 ==
LOC: EC 13:26 → 4SSUR 18:00
PROVIDERS: ADMIT Family Medicine; ATTEND Family Medicine
PROC: 0W9G3ZZ Drainage of Peritoneal Cavity, Percutaneous Approach (ICD-10-PCS; principal; 2024-03-04)
DX: K70.31 Alcoholic cirrhosis of liver with ascites (principal); K76.0 Fatty (change of) liver, not elsewhere classified; F17.200 Nicotine dependence, unspecified, uncomplicated; R65.10 Systemic inflammatory response syndrome (SIRS) of non-infectious origin without acute organ dysfunction; D72.829 Elevated white blood cell count, unspecified; D53.9 Nutritional anemia, unspecified; D75.839 Thrombocytosis, unspecified; F10.11 Alcohol abuse, in remission; K76.6 Portal hypertension; I10 Essential (primary) hypertension; R79.1 Abnormal coagulation profile; Z79.01 Long term (current) use of anticoagulants; Z79.899 Other long term (current) drug therapy
CPT/HCPCS: 36415; 49083; 71046; 76705; 80053; 83605; 83880; 84157; 84484; 85025; 85610; 85730; 87040; 87070; 87075; 87205; 89050; 93005; 93306; 96374; 96375; 99285

== ENCOUNTER 2024-03-19 12:28 | Day surgery (SDC) | payer OTHER ==
[2024-03-19 13:51] LABS: Mean Platelet Volume 7.6; Platelet Count 379 k/uL (150-450)
[2024-03-19 13:59] LABS: African American GFR (CKD) >90 (>60 ml/min/1.73 sqM); Non-African American GFR(CKD) 84 (>60 ml/min/1.73 sqM)
[2024-03-19 14:06] VITALS: TEMP 98.5
[2024-03-19 14:16] LABS: INR 1.2 (<1.2); Prothrombin Time 12.9 sec (10.0-12.5)
[2024-03-19] MEDS: ALBUMIN HUMAN 25% 50 ML in EMPTY BAG 1 BAG IVPB SCH (14:38)
--- NOTE | 2024-03-19 15:18 | US ---
Ultrasound-guided paracentesis. DATE OF EXAM: 03/19/2024 CLINICAL HISTORY: Ascites The procedure was discussed with the patient. The risks, complications, benefits, and alternatives we re discussed and any questions were answered. Informed consent was obtained. The patient was placed s upine on the ultrasound table and prepped and draped in the usual sterile fashion. All elements of maximal barrier technique were utilized. Under ultrasound guidance, access into the right lower quadrant was obtained, via the paracentesis catheter system and direct ultrasound guidanc e. Approximately 4.5 liters of straw-colored fluid was removed. The patient was stable throughout the pr ocedure and remained stable upon discharge from Department of Radiology. IMPRESSION: Successful paracentesis under ultrasound guidance. [facility], , 03/19/2024 3:16 PM
[2024-03-19 15:38] VITALS: BP 109/66; PULSE 105; RESP 28
== END 2024-03-19 15:20 | disposition home or self-care (01) ==
LOC: RADPROMAIN 12:28
PROVIDERS: ATTEND Internal Medicine Gastroenterology
DX: R18.8 Other ascites (principal)
CPT/HCPCS: 36415; 49083; 82565; 85049; 85610

== ENCOUNTER → 2024-04-02 | Outpatient (CLI) | payer OTHER ==
[2024-04-02 15:00] LABS: Basophils # (A) 0.08 X 10*3/uL (0.00-0.10); Basophils % (A) 0.6 %; Eosinophils # (A) 0.29 X 10*3/uL (0.04-0.35); Eosinophils % (A) 2.1 %; HCT 35.8 % (37.2-46.3); HGB 11.6 g/dL (12.0-15.0); Lymphocytes # (A) 1.58 X 10*3/uL (0.90-5.00); Lymphocytes % (A) 11.6 %; MCH 35.3 pg (27.0-32.0); MCHC 32.4 g/dL (32.0-37.0); MCV 108.8 FL (80.0-97.0); Mean Platelet Volume 10.3 FL (9.5-12.2); Monocytes # (A) 0.68 X 10*3/uL (0.20-1.00); NRBC Per 100 WBC 0 X 10*3/uL (0.00-0.01); Neutrophils # (A) 10.91 X 10*3/uL (1.80-7.70); Neutrophils % (A) 80.4 %; Platelet Count 307 X 10*3/uL (140-440); RBC 3.29 X 10*6/uL (4.10-5.20); RDW 13.3 % (11.5-14.5); WBC 13.58 X 10*3/uL (4.50-10.00)
[2024-04-02 15:38] LABS: Hepatitis B Surface Antigen Nonreactive (Nonreactive); Hepatitis C IgG Antibody Nonreactive (Nonreactive)
[2024-04-02 15:40] LABS: % Iron Saturation 12.66 (12.00-45.00); ALT 19 U/L (8-44); AST 42 U/L (13-35); Albumin/Globulin Ratio 1.03 Ratio (1.60-3.17); Alkaline Phosphatase 245 U/L (41-126); Blood Urea Nitrogen 21.1 mg/dL (9.0-27.0); Calcium 10.5 mg/dL (8.7-10.3); Carbon Dioxide 21.5 mmol/L (21.6-31.8); Chloride 99 mmol/L (96-109); Globulin 3.9 g/dL (1.6-3.3); Glucose 113 mg/dL (70-110); Iron 40 UG/DL (50-170); Potassium 4.8 mmol/L (3.5-5.5); Sodium 135 mmol/L (135-145); Total Bilirubin 0.6 mg/dL (0.3-1.2); Total Iron Binding Capacity 316 UG/DL (228-460); Total Protein 7.9 g/dL (6.2-8.2)
== END | disposition home or self-care (01) ==
LOC: LABWHC1 10:24
PROVIDERS: ATTEND Nurse Practitioner Family
CPT/HCPCS: 36415; 80053; 82105; 82140; 82607; 82728; 82746; 83540; 83550; 85025; 86803; 87340

== ENCOUNTER 2024-04-15 09:06 | Day surgery (SDC) | payer OTHER ==
[2024-04-15] MEDS ORDERED: ALBUMIN HUMAN 25% 50 ML in EMPTY BAG 1 BAG IVPB SCH (09:30)
[2024-04-15 09:32] VITALS: BP 109/70; PULSE 83; RESP 16; TEMP 98
--- NOTE | 2024-04-15 09:51 | US ---
EXAMINATION TYPE: US discontinued paracentesis DATE OF EXAM: 04/15/2024 9:40 AM CLINICAL INDICATION: Female, 48 years old with history of K70.31 ALCOHOLIC CIRRHOSIS OF LIVER WITH A SCITES; COMPARISON: 03/19/2024 ATTENDING: Dr. Pack TECHNIQUE, FINDINGS, IMPRESSION: Initial ultrasound of the 4 abdominal quadrants shows no ascites fluid for paracentesis. The procedure was discontinued. [facility], , 04/15/2024 9:48 AM
== END 2024-04-15 09:55 | disposition home or self-care (01) ==
LOC: RADPROMAIN 09:06
PROVIDERS: ATTEND Internal Medicine Gastroenterology
DX: K70.31 Alcoholic cirrhosis of liver with ascites (principal)
CPT/HCPCS: 76705

== ENCOUNTER → 2024-09-21 | Outpatient (CLI) | payer OTHER ==
--- NOTE | 2024-09-21 09:25 | US ---
EXAMINATION TYPE: US liver DATE OF EXAM: 09/21/2024 COMPARISON: CT abdomen pelvis February 18, 2024 CLINICAL INDICATION: Female, 49 years old with history of K70.31 ALCOHOLIC CIRRHOSIS OF LIVER WITH CITES; hx ascites. TECHNIQUE: Grayscale and color Doppler imaging of the right upper quadrant was performed. FINDINGS: EXAM MEASUREMENTS: Liver Length: 15.4 cm Gallbladder Wall: 0.2 cm CBD: 0.6 cm Right Kidney: 7.9 x 4.1 x 4.2 cm STOCK SPECULATOR NOTES: Pancreas: Echogenic and heterogenous. Tail not well seen. Liver: Heterogenous, echogenic and coarse. Gallbladder: No stones or wall thickening Evidence for sonographic Lopez's sign: neg CBD: wnl Right Kidney: No hydronephrosis or masses seen Visualized pancreas heterogeneous. Portions obscured by overlying bowel gas. Visualized liver heterog eneously hyperechoic. Evaluation for focal masses suboptimal due to the heterogeneity. No right-sided hydronephrosis. No shadowing mobile gallstones. IMPRESSION: Heterogeneous hyperechoic appearance of liver consistent with known hepatocellular disease. No ascite s is present currently. [facility], , 09/21/2024 9:22 AM
== END | disposition home or self-care (01) ==
LOC: RADUSWWP 08:42
PROVIDERS: ATTEND Internal Medicine Gastroenterology
DX: K70.30 Alcoholic cirrhosis of liver without ascites (principal)
CPT/HCPCS: 76705